=== PATIENT | female | born 1955 | race Caucasian/White ===

== ENCOUNTER 2016-11-26 06:08 | Observation (INO) ==
[2016-11-26] MEDS ORDERED: CeFAZolin Pre 2,000 MG/100 ML 2,000 MG/100 ML BAG IVPB ONE (06:22)
[2016-11-26] MEDS ORDERED: Albuterol 2.5 MG/3 ML NEBULIZER ONE (06:29)
[2016-11-26] MEDS ORDERED: Ringers Solution, Lactated 1,000 ML IVC SCH ×2 (06:30→08:45)
[2016-11-26] MEDS ORDERED: Dexamethasone 4 MG/ML VIAL ONE (06:34)
[2016-11-26] MEDS ORDERED: Ondansetron 4 MG/2 ML VIAL ONE (06:34)
[2016-11-26] MEDS ORDERED: Lidocaine -MPF 2% 2 ML VIAL ONE (06:34)
[2016-11-26] MEDS ORDERED: *HR* Propofol 200 MG/20 ML VIAL IVP ONE (06:34)
[2016-11-26] MEDS ORDERED: *HR* FentaNYL (PF) 100 MCG/2 ML VIAL ONE ×3 (06:34→10:26)
[2016-11-26] MEDS ORDERED: Albuterol 2.5 MG/3 ML NEBULIZER IH ONE (06:34)
--- NOTE | 2016-11-26 06:55 | Anesthesia Evaluation PreOp ---
Date of Encounter: 11/26/16 Time of Encounter: 06:53 - Past History Planned Operation: Right Ankle Fusion Cardiac History: HTN, Other (Murmur - no symptoms) Pulmonary History: Asthma OCCASIONAL BABYSITTER History: Denies Any Significant HX Other Medical History: Diabetes Type II Anesthesia History: No Prior Anesthetic Complications, Past Anesthesia (c/s, GB, , exp. Lap) : No Alcohol Use: none Drug use: none Medications and Allergies Acetaminophen [Tylenol] 500 mg PO Q6HR PRN 11/26/16 [History] Albuterol Sulfate [Proair Hfa] 2 puff IH Q4H PRN 11/26/16 [History] Ibuprofen [Advil] 200 mg PO Q6H PRN 11/26/16 [History] Insulin Glargine,Hum.rec.anlog [Lantus Solostar] 45 unit SQ DAILY 11/26/16 [ History] Insulin LISPRO [Humalog Kwikpen U-100] 15 unit SQ TIDWM 11/26/16 [History] Valsartan/Hydrochlorothiazide [Diovan Hct 160-25 mg Tablet] 1 tab PO DAILY 11/26 [History] Allergies acetaminophen [From Percocet] Allergy (Verified 11/11/16 15:50) Hives Oxycodone [From Percocet] Allergy (Verified 11/11/16 15:50) Hives metformin [From Glucophage] Adverse Reaction (Verified 11/11/16 15:50) Diarrhea - Meds/Allergy Pre-op Review Medications Reviewed: Yes Allergies Reviewed: Yes Beta Blockers on Current Med List: No Anesthesia Results - Labs Laboratory Tests 07/09/16 09/10/16 11/11/16 09:09 09:34 16:17 WBC 9.2 Hgb 11.3 L Hct 38.3 Plt Count 163 Sodium 142 Potassium Chloride 107 Carbon Dioxide 26 BUN 29 H Creatinine 1.15 H 11/15/16 12:34 WBC Hgb Hct Plt Count Sodium Potassium 5.0 H Chloride Carbon Dioxide BUN Creatinine - Imaging EKG: image reviewed (SR. krista [place]) Anesthesia Exam O2 Sat Height 1.73 m Height 1.73 m Weight 95.254 kg Weight 95.254 kg O2 Sat by Pulse Oximetry 100 Vital Signs Temp Pulse Resp BP Pulse Ox 98.3 F 74 18 189/76 100 11/26/16 06:31 11/26/16 06:31 11/26/16 06:31 11/26/16 06:31 11/26/16 06:31 Blood glucose: 121 Height: 5'8'' Weight: 210# NPO (# of Hours): > 8 hrs Pain Scale: 0 Pain Scale Used: Numeric (1 - 10) - HEENT Pupil (Motor): Pupils equal, EOMI Mallampati: II Teeth: Normal Oral Opening: Greater than 3 - OCCASIONAL BABYSITTER LOC: Oriented OCCASIONAL BABYSITTER Motor: Normal RUE, Normal LUE, Normal RLE, Normal LLE, Normal Face OCCASIONAL BABYSITTER Sensory: Normal: RUE, LUE, RLE, LLE, Face - Cardiac Rhythm: Regular Murmur: None JVD: No Carotid Bruit: No - Pulmonary Breath Sounds: bilateral Clear Respiratory Effort: Symmetrical Anesthesia Assess/Plan ASA Score: 2 Modified [place] Scale for Level of Consciousness: Cooperative, oriented, and tranquil Anesthetic Plan: General Autologous Blood: Yes Monitoring Plan: Standard Monitors Recovery Plan: PACU
--- NOTE | 2016-11-26 07:24 | History & Physical Report ---
Date of Encounter: 11/26/16 Time of Encounter: 07:23 24 Hour HP Update - Instructions Instructions: If the History and Physical is less than 30 days old and was completed prior to A.M. admission and or procedure and has NOT been updated on calendar day of procedure please complete this update prior to performing procedure. - Update Patient reports changes in Medical Condition: No Changes in assessment/condition: No Changes in Medication: No Preop tests/diagnostics Reviewed: Yes Surgery Remains Indicated: Yes Consent for Planned Operative Procedure(s) Verified: Yes - Pre-Operative Checklist Preoperative Checklist Indicated: Yes Prophylactic Antibiotic Ordered: Yes Home Medications Include Beta Abilio: No Beta Abilio Taken Today (Day of Surgery): No Beta Abilio Taken Yesterday (Day Prior to Surgery): No Is VTE Prophylaxis Indicated?: Yes
[2016-11-26] MEDS ORDERED: Bupivacaine/Clonidine Syringe 1 EACH SYRINGE ONE ×2 (07:26→07:34)
[2016-11-26] MEDS ORDERED: *HR* Midazolam HCl 2 MG/2 ML VIAL ONE ×2 (07:36→08:51)
[2016-11-26] MEDS ORDERED: EPHEDrine 50 MG/ML VIAL ONE (08:28)
--- NOTE | 2016-11-26 08:30 | Anesthesia Procedures ---
Date of Encounter: 11/26/16 Time of Encounter: 07:35 Procedures: Anesthesia - Nerve Block Procedure Date: 11/26/16 Time: 08:28 Allergies/Adv Reactions: acetaminophen, oxycodone, metformin Pre-op Diagnosis: Right ankle Charcot ankle Surgical Procedure: Right ankle fusion Checklist: Correct Patient Identifier, Correct procedure, History checked Correct side: Right Blood Thinner: No Monitor Applied: EKG, BP, Pulse Oximetry Supplemental Oxygen via Nasal Cannula (L/min): 2 Sedation: Versed (mg): 4 Sedation: Fentanyl (mcg): 200 Indication: Post Op Analgesia Pre-op Neuro Deficits: No Block Type: Popliteal Catheter placed: No Sterile Technique: Yes Ultrasound used: Yes Anatomy identified: Yes Visual spread of Local: Yes Neuro Stimulation: Yes Nerve Stimulator Range: 0.2 - 0.4 mA Blood on Needle Aspiration: No Smooth Injection of Local: Yes Pain with Injection of Local: No Prep: Chlorhexadine Needle: 21 x 100 mm Stimuplex Local: 0.25% Bupivicaine w/Clonidine 20 mcg/cc Volume (cc): 40 Number of Attempts: 1 Complications: None/effective block Vitals: Vital Signs Temperature 98.3 F 11/26/16 06:31 Pulse Rate 74 11/26/16 06:31 Respiratory Rate 18 11/26/16 06:31 Blood Pressure 189/76 11/26/16 06:31 O2 Sat by Pulse Oximetry 100 11/26/16 06:31 Temperature 98.3 F 11/26/16 06:31 Pulse Rate 74 11/26/16 06:31 Respiratory Rate 18 11/26/16 06:31 Blood Pressure 189/76 11/26/16 06:31 O2 Sat by Pulse Oximetry 100 11/26/16 06:31 BP 178/82 P 78 R 18 Spo2 97 Comments: Block ordered per dr sessions for postoperative pain relief. VSS throughout.
[2016-11-26] MEDS ORDERED: *HR* HYDROmorphone (PF) 1 MG/ML SYRINGE IVP PRN (08:33)
[2016-11-26] MEDS ORDERED: *HR* Promethazine 25 MG/ML VIAL IVP PRN (08:33)
[2016-11-26] MEDS ORDERED: INSULIN LISPRO 15 UNIT SQ SCH (13:01)
[2016-11-26] MEDS: Insulin LISPRO 300 UNITS/3 ML VIAL SQ SCH ×2 (14:15→18:06)
[2016-11-26 15:10] LABS: Basophils % 0.1 %; Hematocrit 31.8 % (35.3-44.9); Hemoglobin 10.6 g/dL (11.5-15.4); Immature Granulocytes % 0.5 % (0-4); Immature Platelets 3.9 % (1.1-6.1); Lymphocytes # 0.7 K/mcL (0.6-4.6); Lymphocytes % 5.6 %; Mean Corpuscular HGB Conc 33.3 g/dL (31.6-35.5); Mean Corpuscular Hemoglobin 30.8 pg (28.0-33.3); Mean Corpuscular Volume 92.4 fL (83.0-100.0); Mean Platelet Volume 10.9 fL (9.4-12.4); Monocytes # 0.2 K/mcL (0.0-1.3); Monocytes % 1.2 %; Neutrophils # 12.2 K/mcL (1.6-8.9); Platelet Count 163 K/mcL (140-400); Red Blood Count 3.44 M/mcL (3.82-4.97); Red Cell Distribution Width 12.2 % (11.5-14.5); Segmented Neutrophils % 92.6 %
[2016-11-26 15:40] LABS: BUN/Creatinine Ratio 17 (6-26); Blood Urea Nitrogen 19 mg/dL (7-20); Carbon Dioxide 15 mEq/L (19-29); Chloride 106 mEq/L (98-109); Glucose 315 mg/dL (70-99); Osmolality,Calculated 296 (280-300); Sodium 136 mEq/L (136-145); eGFR For African Americans > 60 (> 60); eGFR For Non-African Americans 50 (> 60)
[2016-11-26 15:55] LABS: Potassium 4.7 mEq/L (3.5-4.5)
[2016-11-26] MEDS ORDERED: Dextrose Gel 15 GM PO PRN ×2 (15:56)
[2016-11-26] MEDS ORDERED: *HR* Dextrose 50 % in Water (Syg) 50 ML SYRINGE IVP PRN (15:56)
[2016-11-26] MEDS ORDERED: D5% in Water 1,000 ML IV PRN (15:56)
[2016-11-26] MEDS ORDERED: Ipratropium/Albuterol Neb 3 ML IH PRN (16:01)
--- NOTE | 2016-11-26 16:04 | Internal Medicine Consult Note ---
Date of Encounter: 11/26/16 Time of Encounter: 16:03 Internal Medicine - CN: HPI - Data of Consult Patient: new to practice Consult date: 11/26/16 Requesting Physician: Ayden Camarillo - Consult Narrative Reason for consult: Medical management of type 2 diabetes and Hypertension History of present illness: Ms. Talamantes is a 61 year old female with history of type 2 diabetes, Hypertension and asthma admitted by Dr. Camarillo for right ankle surgery for charcot ankle this morning. Expected length of stay will be 3 days and plans for discharge include intermediate facility. Our team was consulted to manage her medical comorbidities. On exam, she is alert and oriented, in no acute distress, with right lower leg casted and elevated. She denies any pain. Heart has regular rate and rhythm with murmur asucltated at right sternal border. Lungs are clear bilaterally. Normal capillary refill in bilateral toes. Abdomen is soft with hypoactive bowel sounds. Past Med Surg Social Fam HX - Past Medical History Medical history: asthma, diabetes, hypertension Psychiatric history: no psych history - Past Surgical History Surgical History: , cholecystectomy, orthopedic, other (right ankle) - Social History Smoking Status: Never smoker Smokeless Tobacco Status: No Alcohol use: none Drug use: none - Family History Mother Age at : 42 Cause of : Cancer Hx Family Cardiac Disorders: Yes Hx Family Cancer: Yes Hx Family Endocrine Disorder: Yes Father Living Status: Age at : 86 Cause of : CVA Hx Family Cardiac Disorders: Yes Internal Medicine - CN: Meds Acetaminophen [Tylenol] 500 mg PO Q6HR PRN 11/26/16 [History] Albuterol Sulfate [Proair Hfa] 2 puff IH Q4H PRN 11/26/16 [History] Ibuprofen [Advil] 200 mg PO Q6H PRN 11/26/16 [History] Insulin Glargine,Hum.rec.anlog [Lantus Solostar] 45 unit SQ DAILY 11/26/16 [ History] Insulin LISPRO [Humalog Kwikpen U-100] 15 unit SQ TIDWM 11/26/16 [History] Valsartan/Hydrochlorothiazide [Diovan Hct 160-25 mg Tablet] 1 tab PO DAILY 11/26 [History] Allergies acetaminophen [From Percocet] Allergy (Verified 11/11/16 15:50) Hives Oxycodone [From Percocet] Allergy (Verified 11/11/16 15:50) Hives metformin [From Glucophage] Adverse Reaction (Verified 11/11/16 15:50) Diarrhea Internal Medicine - CN: Exam - Constitutional Vitals: Temp Pulse Resp BP Pulse Ox 97.6 F 87 18 152/72 100 11/26/16 15:20 11/26/16 15:20 11/26/16 15:20 11/26/16 15:20 11/26/16 15:20 General appearance IM: Present: A&O X 3, no acute distress - Head Head exam: Present: atraumatic, normocephalic - Eye Eye exam: Present: EOMI, PERRL, conjuntiva pink, sclera anicteric - ENT ENT exam: Present: mucous membranes moist - Neck Neck exam general surgery: Present: normal inspection, supple, trachea midline - Respiratory Respiratory exam: Present: CTAB. Absent: accessory muscle use, rales, rhonchi, wheezes - Cardiovascular Cardiovascular exam IM: Present: RRR, +S1, +S2, systolic murmur. Absent: gallop , rubs - Expanded Cardiovascular Exam Type of murmur: Present: systolic Location: Present: RUSB Intensity: 2/6 Peripheral pulses: 2+: Radial (L), Radial (R) - GI/Abdominal GI/Abdominal exam IM: Present: hypoactive bowel sounds, soft. Absent: tenderness - Neurological Exam Neurological exam: Present: alert, CN II-XII intact, oriented X3. Absent: facial droop, speech deficit - Skin Skin exam IM: Present: dry, intact, warm Internal Medicine - CN: Reslt - Labs CBC & Chem 7: 11/26/16 14:54 11/26/16 14:54 Labs: Short CBC 11/26/16 Range/Units 14:54 WBC 13.2 H (4.3-11.1) K/mcL Hgb 10.6 L (11.5-15.4) g/dL Hct 31.8 L (35.3-44.9) % Plt Count 163 (140-400) K/mcL Neutrophils # 12.2 H (1.6-8.9) K/mcL BMP 11/26/16 14:54 Sodium 136 Potassium 4.7 H Chloride 106 Carbon Dioxide 15 L BUN 19 Creatinine 1.12 H Glucose 315 H Calcium 9.0 - Impressions Impressions Ankle X-Ray 11/26/16 00:00 IMPRESSION: Intraprocedural fluoroscopic spot images as above. See separate procedure report for more information. D/ / Rene Renee MD / Rene Renee MD Interpreting Provider: Rene Renee MD Fluoroscopy 11/26/16 00:00 IMPRESSION: Intraprocedural fluoroscopic spot images as above. See separate procedure report for more information. 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 Will continue with Valsartan 160mg nightly and HCTZ 25mg nightly. Qualifiers: Hypertension type: essential hypertension Qualified Code(s): I10 - Essential (primary) hypertension (3) Asthma Current Visit: Yes Status: Chronic Assessment and plan: Duoneb treatments Q6 PRN Albuterol inhaler 2 puffs Q4hr PRN Qualifiers: Asthma severity: unspecified severity Asthma complication type: uncomplicated Qualified Code(s): J45.909 - Unspecified asthma, uncomplicated (4) Hyperkalemia Current Visit: Yes Status: Acute Assessment and plan: Patient's potassium 4.7. Kayexalate ordered. Recheck BMP in the morning. (5) DVT prophylaxis Current Visit: Yes Status: Acute Assessment and plan: Activity per direction of surgical team Calf compressor on non-operative leg 5,000u heparin SQ BID Consult Discharge Plan - Plan Referrals: Moy Eid DO [Primary Care Provider] -
[2016-11-26] MEDS: *HR* HYDROcodone/Acet 10/325 mg TABLET PO PRN (16:10)
[2016-11-26] MEDS: ceFAZolin 2,000 MG in D5% in Water 100 ML IVPB SCH (16:25)
[2016-11-26] MEDS ORDERED: Insulin LISPRO 300 UNITS/3 ML VIAL SQ SCH (17:00)
[2016-11-26] MEDS: *HR* Heparin 5,000 UNIT/ML VIAL SQ SCH (18:04)
[2016-11-26] MEDS: hydroCHLOROthiazide 25 MG TABLET PO SCH (18:05)
[2016-11-26] MEDS: Valsartan 160 MG TABLET PO SCH (18:05)
[2016-11-26] MEDS: Famotidine 20 MG TABLET PO SCH (20:08)
[2016-11-26] MEDS: Insulin DETEMIR 100 UNIT/ML X5UNITS SQ SCH (20:09)
[2016-11-26] MEDS ORDERED: Acetaminophen IV 1,000 MG/100 ML INFUS..BTL IVPB ONE (20:21)
[2016-11-27] MEDS: ceFAZolin 2,000 MG in D5% in Water 100 ML IVPB SCH (02:13)
[2016-11-27] MEDS: *HR* Heparin 5,000 UNIT/ML VIAL SQ SCH ×2 (06:48→17:13)
[2016-11-27] MEDS: *HR* HYDROcodone/Acet 10/325 mg TABLET PO PRN ×3 (06:50→19:42)
[2016-11-27] MEDS: Insulin LISPRO 300 UNITS/3 ML VIAL SQ SCH ×3 (08:14→17:12)
[2016-11-27] MEDS: Valsartan 160 MG TABLET PO SCH (08:14)
[2016-11-27] MEDS: hydroCHLOROthiazide 25 MG TABLET PO SCH (08:14)
[2016-11-27] MEDS: Famotidine 20 MG TABLET PO SCH ×2 (08:15→19:33)
--- NOTE | 2016-11-27 08:35 | Podiatry History & Physical ---
History of Present Illness Chief complaint: Post-operative charcot ankle HPI: Ms. Talamantes is a 61 year old female who has diabetes and a charcot ankle. Patient was admitted for pain control and medical management postoperatively. Patient is in need of admittance to a nursing facility. All Systems Reviewed: A 10-system review of systems was performed and is negative for pertinent findings except as documented above in the HPI. Past Med Surg Social Fam HX - Past Medical History Medical history: asthma, diabetes, hypertension Psychiatric history: no psych history - Past Surgical History Surgical History: , cholecystectomy, orthopedic, other (right ankle) - Social History Smoking Status: Never smoker Smokeless Tobacco Status: No Alcohol use: none Drug use: none - Family History Mother Age at : 42 Cause of : Cancer Hx Family Cardiac Disorders: Yes Hx Family Cancer: Yes Hx Family Endocrine Disorder: Yes Father Living Status: Age at : 86 Cause of : CVA Hx Family Cardiac Disorders: Yes Medications and Allergies Acetaminophen [Tylenol] 500 mg PO Q6HR PRN 11/26/16 [History] Albuterol Sulfate [Proair Hfa] 2 puff IH Q4H PRN 11/26/16 [History] Ibuprofen [Advil] 200 mg PO Q6H PRN 11/26/16 [History] Insulin Glargine,Hum.rec.anlog [Lantus Solostar] 45 unit SQ DAILY 11/26/16 [ History] Insulin LISPRO [Humalog Kwikpen U-100] 15 unit SQ TIDWM 11/26/16 [History] Valsartan/Hydrochlorothiazide [Diovan Hct 160-25 mg Tablet] 1 tab PO DAILY 11/26 [History] Allergies acetaminophen [From Percocet] Allergy (Verified 11/11/16 15:50) Hives Oxycodone [From Percocet] Allergy (Verified 11/11/16 15:50) Hives metformin [From Glucophage] Adverse Reaction (Verified 11/11/16 15:50) Diarrhea Physical Exam - Constitutional Vitals: Temp Pulse Resp BP Pulse Ox 97.8 F 83 16 137/68 99 11/27/16 06:22 11/27/16 06:22 11/27/16 06:22 11/27/16 06:22 11/27/16 06:22 Exam: Dressings intact, pedal pulses palpable. Capillary fill time intact to digits. No open lesions, abrasions, or ulcerations the site surgical sites. Decreased sensation noted to bilateral lower extremities consistent with peripheral neuropathy. Swelling consistent with the postoperative procedure. Results - Labs Result Diagrams: 11/26/16 14:54 11/26/16 14:54 Labs: Abnormal lab results WBC 13.2 K/mcL (4.3-11.1) H 11/26/16 14:54 RBC 3.44 M/mcL (3.82-4.97) L 11/26/16 14:54 Hgb 10.6 g/dL (11.5-15.4) L 11/26/16 14:54 Hct 31.8 % (35.3-44.9) L 11/26/16 14:54 Neutrophils # 12.2 K/mcL (1.6-8.9) H 11/26/16 14:54 Potassium 4.7 mEq/L (3.5-4.5) H 11/26/16 14:54 Carbon Dioxide 15 mEq/L (19-29) L 11/26/16 14:54 Creatinine 1.12 mg/dL (0.57-1.11) H 11/26/16 14:54 Est GFR (Non-Af Amer) 50 (> 60) L 11/26/16 14:54 Glucose 315 mg/dL (70-99) H 11/26/16 14:54 POC Glucose 247 (58-89) H 11/26/16 20:26 H & H 11/26/16 Range/Units 14:54 Hgb 10.6 L (11.5-15.4) g/dL Hct 31.8 L (35.3-44.9) % All other labs normal. Assessment and Plan (1) Charcot ankle Current visit: Yes Status: Acute Patient will remain nonweightbearing. drive worker will work with patient to determine placement. Patient will keep the dressings intact. The TLS drain will be changed if it reaches more than half-full or every 6 hours. Hospitalist will be consulted for medical management. Patient will follow up with me in one week. Qualifiers: Laterality: right Qualified Code(s): M14.671 - Charcot's joint, right ankle and foot - VTE Documentation of Mechanical Device: Graduated compression elastic hosiery
[2016-11-27] MEDS ORDERED: Valsartan 160 MG TABLET PO SCH (09:00)
[2016-11-27] MEDS ORDERED: hydroCHLOROthiazide 25 MG TABLET PO SCH (09:00)
[2016-11-27 10:30] LABS: BUN/Creatinine Ratio 19 (6-26); Blood Urea Nitrogen 21 mg/dL (7-20); Carbon Dioxide 21 mEq/L (19-29); Chloride 104 mEq/L (98-109); Glucose 141 mg/dL (70-99); Osmolality,Calculated 295 (280-300); Potassium 4.2 mEq/L (3.5-4.5); Sodium 140 mEq/L (136-145); eGFR For African Americans > 60 (> 60); eGFR For Non-African Americans 51 (> 60)
[2016-11-27] MEDS: Ondansetron 4 MG/2 ML VIAL IVP PRN (12:37)
--- NOTE | 2016-11-27 16:49 | Internal Med Progress Note ---
Date of Encounter: 11/27/16 Time of Encounter: 09:00 - Assessment and plan (1) Charcot ankle Current Visit: Yes Status: Acute Assessment and plan: S/P surgery, physical therapy, plan for discharge to rehabilitation center. Management per podiatry Qualifiers: Laterality: right Qualified Code(s): M14.671 - Charcot's joint, right ankle and foot (2) Hyperkalemia Current Visit: Yes Status: Acute Assessment and plan: Resolved after Kayexalate (3) Asthma Current Visit: Yes Status: Chronic Assessment and plan: Stable. Nebulizer when necessary. Qualifiers: Asthma severity: unspecified severity Asthma complication type: uncomplicated Qualified Code(s): J45.909 - Unspecified asthma, uncomplicated (4) Hypertension Current Visit: Yes Status: Chronic Assessment and plan: Blood pressure is well controlled. Continue home medication Qualifiers: Hypertension type: essential hypertension Qualified Code(s): I10 - Essential (primary) hypertension (5) Type 2 diabetes mellitus Current Visit: Yes Status: Chronic Assessment and plan: Patient is on basal and sliding scale insulin. Adjust the dosage to get ideal blood sugar control. Qualifiers: Diabetes mellitus complication status: without complication Diabetes mellitus snf insulin use: with snf use Qualified Code(s): E11.9 - Type 2 diabetes mellitus without complications; Z79.4 - FDC (current) use of insulin (6) DVT prophylaxis Current Visit: Yes Status: Acute Assessment and plan: heparin subcutaneously - Time Spent With Patient 25 - 35 minutes - Subjective Interval history: Patient is a 61-year-old female admitted to podiatry service for postoperative charcot ankle. Medical consult for comorbidities. Her past medical history is significant for asthma, diabetes, hypertension. Patient was seen and examined. She is awake, alert, oriented 3, no fever, vital signs stable. Her blood sugar is high, we will adjust insulin regimen to get better control. Her blood pressure is stable. Continue current management. - Constitutional Vitals: Temp Pulse Resp BP Pulse Ox 97.9 F 81 16 114/73 98 11/27/16 14:38 11/27/16 14:38 11/27/16 14:38 11/27/16 14:38 11/27/16 14:38 General appearance: Present: A&O X 3, no acute distress - Head Head exam: Present: atraumatic, normocephalic - Eye Eye exam: Present: PERRL, conjuntiva pink, sclera anicteric Pupils: Present: PERRL - Neck Neck exam general surgery: Present: supple, trachea midline. Absent: lymphadenopathy - Respiratory Respiratory exam: Present: CTAB. Absent: accessory muscle use, rales, rhonchi, wheezes - Cardiovascular Cardiovascular exam: Present: RRR, +S1, +S2. Absent: diastolic murmur, gallop, rubs, systolic murmur - GI/Abdominal GI/Abdominal exam: Present: normal bowel sounds, soft, no peritoneal signs. Absent: distended, tenderness - Extremities Exam Extremities exam: Present: warm, radial pulses palpable and symetrical. Absent : calf tenderness, cyanotic, pedal edema - Neurological Exam Neurological exam: Present: CN II-XII intact, oriented X3, no focal deficits. Absent: pronater drift, facial droop, speech deficit - Skin Skin exam: Present: dry, intact Internal Medicine: Result - Labs CBC & Chem 7: 11/26/16 14:54 11/27/16 09:42 Labs: BMP 11/27/16 09:42 Sodium 140 Potassium 4.2 Chloride 104 Carbon Dioxide 21 BUN 21 H Creatinine 1.09 Glucose 141 H Calcium 9.0 - VTE Documentation of Mechanical Device: Graduated compression elastic hosiery Consult Discharge Plan - Plan Referrals: Moy Eid DO [Primary Care Provider] -
[2016-11-27] MEDS: Insulin DETEMIR 100 UNIT/ML X5UNITS SQ SCH (19:33)
--- NOTE | 2016-11-27 23:06 | Podiatry Progress Note ---
Date of Encounter: 11/27/16 Time of Encounter: 13:02 - Assessment and Plan (1) Charcot ankle Current Visit: Yes Status: Acute Patient will remain nonweightbearing. automotive tire worker will work with patient to determine placement. Patient will keep the dressings intact. The TLS drain will be changed if it reaches more than half-full or every 6 hours. Hospitalist will be consulted for medical management. Patient will follow up with me in one week. Qualifiers: Laterality: right Qualified Code(s): M14.671 - Charcot's joint, right ankle and foot Subjective Principal diagnosis: Charcot ankle Interval history: Patient relates that she is feeling pain. Patient relates that she has been feeling better today though. Patient denies any nausea, vomiting, chills, shortness of breath. Patient relates that the pain is a throbbing pain. Objective - Vital Signs Vital Signs: Vital Signs Temp Pulse Resp BP Pulse Ox 11/27/16 20:27 98.3 F 80 15 99/64 100 11/27/16 14:38 97.9 F 81 16 114/73 98 11/27/16 12:17 78 16 111/70 97 11/27/16 10:39 97.7 F 78 16 111/70 97 11/27/16 08:26 99 11/27/16 06:22 97.8 F 83 16 137/68 99 11/27/16 04:18 97.9 F 80 16 134/62 99 11/27/16 00:07 97.7 F 76 14 119/65 100 Intake and Output 11/27/16 11/27/16 11/27/16 07:59 15:59 23:59 Intake Total 300 / 300 1140 / 1140 Output Total 300 / 300 450 / 450 Balance 0 / 0 690 / 690 Intake: IV Fluids 100 / 100 Ancef 2,000 MG In 100 / 100 Dextrose 5% 100 ML @ 200 mls/hr IVPB Q8HR [facility] Rx#: [id number] Oral 200 / 200 1140 / 1140 Output: Urine 300 / 300 450 / 450 Other: Meal Breakfast Percent of Meal Consumed 100% Blood Glucose* 150 102 98 - Exam Exam: Dressing intact, patient is able to plantarflex and dorsiflex digits. CFT intact to the digits. - Lab Result Diagrams: 11/26/16 14:54 11/27/16 09:42 Labs: Abnormal lab results WBC 13.2 K/mcL (4.3-11.1) H 11/26/16 14:54 RBC 3.44 M/mcL (3.82-4.97) L 11/26/16 14:54 Hgb 10.6 g/dL (11.5-15.4) L 11/26/16 14:54 Hct 31.8 % (35.3-44.9) L 11/26/16 14:54 Neutrophils # 12.2 K/mcL (1.6-8.9) H 11/26/16 14:54 BUN 21 mg/dL (7-20) H 11/27/16 09:42 Est GFR (Non-Af Amer) 51 (> 60) L 11/27/16 09:42 Glucose 141 mg/dL (70-99) H 11/27/16 09:42 POC Glucose 98 (58-89) H 11/27/16 20:18 - VTE Documentation of Mechanical Device: Graduated compression elastic hosiery Consult Discharge Plan - Plan Referrals: Moy Eid DO [Primary Care Provider] -
[2016-11-28] MEDS: *HR* Heparin 5,000 UNIT/ML VIAL SQ SCH ×2 (05:38→18:00)
[2016-11-28] MEDS: *HR* HYDROcodone/Acet 10/325 mg TABLET PO PRN ×3 (06:55→18:34)
[2016-11-28 07:15] LABS: Calcium 8.6 mg/dL (8.6-10.8); Potassium 4.3 mEq/L (3.5-4.5)
[2016-11-28] MEDS: hydroCHLOROthiazide 25 MG TABLET PO SCH (07:57)
[2016-11-28] MEDS: Famotidine 20 MG TABLET PO SCH ×2 (07:58→20:28)
[2016-11-28] MEDS: Insulin LISPRO 300 UNITS/3 ML VIAL SQ SCH ×3 (07:58→18:01)
[2016-11-28] MEDS: Valsartan 160 MG TABLET PO SCH (07:59)
[2016-11-28] MEDS: Ondansetron 4 MG/2 ML VIAL IVP PRN (12:39)
--- NOTE | 2016-11-28 16:22 | Internal Med Progress Note ---
Date of Encounter: 11/28/16 Time of Encounter: 09:00 - Assessment and plan (1) Charcot ankle Current Visit: Yes Status: Acute Assessment and plan: S/P surgery, physical therapy, plan for discharge to rehabilitation center. Management per podiatry Qualifiers: Laterality: right Qualified Code(s): M14.671 - Charcot's joint, right ankle and foot (2) Hyperkalemia Current Visit: Yes Status: Acute Assessment and plan: Resolved after Kayexalate (3) Asthma Current Visit: Yes Status: Chronic Assessment and plan: Stable. Nebulizer when necessary. Qualifiers: Asthma severity: unspecified severity Asthma complication type: uncomplicated Qualified Code(s): J45.909 - Unspecified asthma, uncomplicated (4) Hypertension Current Visit: Yes Status: Chronic Assessment and plan: Blood pressure is well controlled. Continue home medication Qualifiers: Hypertension type: essential hypertension Qualified Code(s): I10 - Essential (primary) hypertension (5) Type 2 diabetes mellitus Current Visit: Yes Status: Chronic Assessment and plan: Patient is on basal and sliding scale insulin. Adjust the dosage to get ideal blood sugar control. Now Glu level is stable. Qualifiers: Diabetes mellitus complication status: without complication Diabetes mellitus vermin exterminator insulin use: with vermin exterminator use Qualified Code(s): E11.9 - Type 2 diabetes mellitus without complications; Z79.4 - watermelon inspector (current) use of insulin (6) DVT prophylaxis Current Visit: Yes Status: Acute Assessment and plan: heparin subcutaneously (7) Nausea Current Visit: Yes Status: Acute Assessment and plan: Etiology is undetermined. Patient passing gas and abdominal examination shows soft and nontender. Consider side effect of medications or postoperative nausea. Give symptomatic treatment. - Time Spent With Patient 25 - 35 minutes - Subjective Interval history: Patient is a 61-year-old female admitted to podiatry service for postoperative charcot ankle. Medical consult for comorbidities. Her past medical history is significant for asthma, diabetes, hypertension. Patient was seen and examined. She c/o nausea, no vomiting. She has no fever, vital signs stable. Her blood sugar is getting better control. Her blood pressure is stable. Pt has passed gas, abd is soft and nontender. Consider nausea is due to side effects of medication or PONV. Will add IVF to prevent dehydration. Symptomatic control. Continue close monitoring. - Constitutional Vitals: Temp Pulse Resp BP Pulse Ox 97.9 F 71 16 123/70 100 11/28/16 15:07 11/28/16 15:07 11/28/16 15:07 11/28/16 15:07 11/28/16 15:07 General appearance: Present: A&O X 3, no acute distress - Head Head exam: Present: atraumatic, normocephalic - Eye Eye exam: Present: PERRL, conjuntiva pink, sclera anicteric Pupils: Present: PERRL - Neck Neck exam general surgery: Present: supple, trachea midline. Absent: lymphadenopathy - Respiratory Respiratory exam: Present: CTAB. Absent: accessory muscle use, rales, rhonchi, wheezes - Cardiovascular Cardiovascular exam: Present: RRR, +S1, +S2. Absent: diastolic murmur, gallop, rubs, systolic murmur - GI/Abdominal GI/Abdominal exam: Present: normal bowel sounds, soft, no peritoneal signs. Absent: distended, tenderness - Extremities Exam Extremities exam: Present: warm, radial pulses palpable and symetrical. Absent : calf tenderness, cyanotic, pedal edema - Neurological Exam Neurological exam: Present: CN II-XII intact, oriented X3, no focal deficits. Absent: pronater drift, facial droop, speech deficit - Skin Skin exam: Present: dry, intact Internal Medicine: Result - Labs CBC & Chem 7: 11/26/16 14:54 11/28/16 05:53 Labs: BMP 11/28/16 05:53 Sodium 140 Potassium 4.3 Chloride 108 Carbon Dioxide 21 BUN 35 H D Creatinine 1.57 H Glucose 124 H Calcium 8.6 - VTE Documentation of Mechanical Device: Graduated compression elastic hosiery Consult Discharge Plan - Plan Referrals: Moy Eid DO [Primary Care Provider] -
[2016-11-28] MEDS: *HR* Promethazine 25 MG/ML VIAL IVP PRN (18:00)
[2016-11-28] MEDS: 0.9 % Sodium Chloride 1,000 ML IVC SCH (18:34)
[2016-11-28] MEDS: Insulin DETEMIR 100 UNIT/ML X5UNITS SQ SCH (20:28)
[2016-11-29] MEDS: 0.9 % Sodium Chloride 1,000 ML IVC SCH (05:13)
[2016-11-29] MEDS: *HR* HYDROcodone/Acet 10/325 mg TABLET PO PRN ×3 (05:40→18:07)
[2016-11-29] MEDS: *HR* Heparin 5,000 UNIT/ML VIAL SQ SCH ×2 (05:40→18:04)
[2016-11-29 06:26] LABS: Basophils % 0.2 %; Eosinophils # 0.1 K/mcL (0.0-0.6); Hematocrit 26.6 % (35.3-44.9); Immature Granulocytes % 0.4 % (0-4); Lymphocytes # 2.9 K/mcL (0.6-4.6); Lymphocytes % 27.5 %; Mean Corpuscular HGB Conc 33.8 g/dL (31.6-35.5); Mean Corpuscular Hemoglobin 30.9 pg (28.0-33.3); Mean Corpuscular Volume 91.4 fL (83.0-100.0); Mean Platelet Volume 12.1 fL (9.4-12.4); Monocytes # 1.1 K/mcL (0.0-1.3); Monocytes % 10.8 %; Neutrophils # 6.3 K/mcL (1.6-8.9); Platelet Count 126 K/mcL (140-400); Red Blood Count 2.91 M/mcL (3.82-4.97); Red Cell Distribution Width 12.5 % (11.5-14.5); Segmented Neutrophils % 60.1 %
[2016-11-29 06:41] LABS: Albumin 2.9 g/dL (3.5-5.0); Albumin/Globulin Ratio 0.8 (1.1-2.2); Bilirubin,Total 1.1 mg/dL (0.2-1.2); Calcium 8.9 mg/dL (8.6-10.8); Globulin 3.6 g/dL (2.4-3.5); Potassium 4.6 mEq/L (3.5-4.5); Total Protein 6.5 g/dL (6.0-8.3)
[2016-11-29 06:46] LABS: Platelet Estimate Slight Decrease (Normal)
[2016-11-29] MEDS: Insulin LISPRO 300 UNITS/3 ML VIAL SQ SCH ×3 (08:20→18:04)
[2016-11-29] MEDS: Famotidine 20 MG TABLET PO SCH ×2 (08:22→20:47)
[2016-11-29] MEDS: hydroCHLOROthiazide 25 MG TABLET PO SCH (08:22)
[2016-11-29] MEDS: Valsartan 160 MG TABLET PO SCH (08:22)
--- NOTE | 2016-11-29 13:26 | Operative Note ---
Date of procedure: 11/26/16 Pre-op diagnosis: Charcot arthropathy rear foot with deformity, right Post-op diagnosis: same Procedure: Arthrodesis of ankle joint. Arthrodesis of subtalar joint. Capsulotomy of the midfoot, extensive talotibial capsulotomy with ligamentous/ tendon release. Resection of prominent bone of the midfoot. Procurement of bone graft and placement of bone graft in the subtalar and ankle joint Implants: [employer] valor nail Complications: None Anesthesia: GETA Surgeon: Ayden Camarillo Estimated blood loss (cc): 50 Tourniquet Time (Minutes): 120 Specimen: None Condition: stable Disposition: floor Procedure in Detail: The patient was administered IV antibiotics. The patient was transported to the operative room and placed on operating table in the position. Following anesthesia the foot was scrubbed prepped and draped in the usual aseptic fashion. A timeout was performed. The lower extremity was raised to 60 degrees for hemostasis and exsanguinated utilizing an Esmarch bandage. The pneumatic tourniquet was inflated. The leg was lowered to the table. An incision was made and deepened through subcutaneous tissue with care taken to identify and retract all vital neurovascular structures. Incision was made over the fibula extending down to the subtalar joint. The fibula was identified and a fibular osteotomy was performed at the distal aspect of the fibula to gain access to the ankle joint. Collateral ligaments were released as well as the syndesmotic ligament to remove the distal aspect of the fibula and gain access to the ankle joint. After the ankle joint was partially visible it was noted that there was significant amounts of hypertrophic bone formation consistent with Charcot arthropathy. The joint was noted to be in terrible condition due to Charcot arthropathy. The subtalar joint was identified and noted to be significant irregular due to the Charcot arthropathy. Due to the significant deformity and difficulty reducing the deformity extensive capsulotomies were performed at the subtalar joint, posterior talotibial joint and the peroneal tendons were released from their sheath and mobilized. After adequate capsulotomy and release of ligaments the access to the joints improved and the deformity was more easily corrected. The joints were prepped by removing any remaining cartilage and by doing subchondral drilling to obtain healthy bleeding bone on both sides of the arthrodesis site. A portion of fibular bone graft was milled and saved to be placed in the ankle joint and subtalar joint. After the subtalar joint and ankle joint were prepped there was noted to be additional deformity near the midfoot. An incision was made on the medial aspect of the midfoot and a capsulotomy was performed followed by resection of hypertrophic bone along the dorsal aspect of the midfoot. After adequate capsulotomy and midfoot resection of bone were complete attempted reduction of the deformity was performed and the ankle and foot were able to be in a more rectus position. The bone graft was placed in the subtalar joint and ankle joint. The position was stabilized with a Steinmann pin and a small incision was made on the plantar aspect of the calcaneus. A pin was placed up the calcaneus through the talus and into the intramedullary space of the tibia. The tibia was then reamed and prepared for the intramedullary nail. The nail was then inserted stabilizing the rear foot and aligning the rear foot in a rectus position . The ankle joint was noted to be at 90 degrees and the screws were inserted into the nail to stabilize the ankle and nail. After confirmation of adequate placement was confirmed with fluoroscopy, the incision sites were irrigated with copious amounts of normal saline and closed in a layered fashion. A TLS drain was placed. A dry sterile dressing was applied. The pneumatic tourniquet was deflated and a hyperemic response was noted to all digits. The patient was placed in a posterior splint. The patient tolerated the procedure and anesthesia well and was transported to the recovery room with vital signs stable and vascular status intact to both feet. The patient will be admitted to the floor per anesthesia. The patient will keep the dressings clean, dry, intact until the follow-up appointment in 1-2 weeks. The patient's weightbearing status will be strict nonweightbearing. The patient will also begin using a bone stimulator.
--- NOTE | 2016-11-29 15:37 | Internal Med Progress Note ---
Date of Encounter: 11/29/16 Time of Encounter: 10:00 - Assessment and plan (1) Charcot ankle Current Visit: Yes Status: Acute Assessment and plan: S/P surgery, physical therapy, plan for discharge to rehabilitation center. Management per podiatry Qualifiers: Laterality: right Qualified Code(s): M14.671 - Charcot's joint, right ankle and foot (2) Hyperkalemia Current Visit: Yes Status: Acute Assessment and plan: Resolved after Kayexalate (3) Asthma Current Visit: Yes Status: Chronic Assessment and plan: Stable. Nebulizer when necessary. Qualifiers: Asthma severity: unspecified severity Asthma complication type: uncomplicated Qualified Code(s): J45.909 - Unspecified asthma, uncomplicated (4) Hypertension Current Visit: Yes Status: Chronic Assessment and plan: Blood pressure is well controlled. Continue home medication Qualifiers: Hypertension type: essential hypertension Qualified Code(s): I10 - Essential (primary) hypertension (5) Type 2 diabetes mellitus Current Visit: Yes Status: Chronic Assessment and plan: Patient is on basal and sliding scale insulin. Adjust the dosage to get ideal blood sugar control. Now Glu level is stable. Qualifiers: Diabetes mellitus complication status: without complication Diabetes mellitus intermodal owner operator truck driver insulin use: with intermodal owner operator truck driver use Qualified Code(s): E11.9 - Type 2 diabetes mellitus without complications; Z79.4 - terminal operations supervisor (current) use of insulin (6) DVT prophylaxis Current Visit: Yes Status: Acute Assessment and plan: heparin subcutaneously (7) Nausea Current Visit: Yes Status: Acute Assessment and plan: Improving. - Time Spent With Patient 25 - 35 minutes - Subjective Interval history: Patient is a 61-year-old female admitted to podiatry service for postoperative charcot ankle. Medical consult for comorbidities. Her past medical history is significant for asthma, diabetes, hypertension. Patient was seen and examined. She c/o mild nausea, improved vs yesterday, no vomiting. She has no fever, vital signs stable. Her blood sugar and blood pressure are stable. Pt has passed gas, abd is soft and nontender. Patient today eat well, will d/c IVF. Symptomatic control. Continue physical therapy and plan for rehabilitation discharge. - Constitutional Vitals: Temp Pulse Resp BP Pulse Ox 98.2 F 82 16 121/57 96 11/29/16 14:51 11/29/16 14:51 11/29/16 14:51 11/29/16 14:51 11/29/16 14:51 General appearance: Present: A&O X 3, no acute distress - Head Head exam: Present: atraumatic, normocephalic - Eye Eye exam: Present: PERRL, conjuntiva pink, sclera anicteric Pupils: Present: PERRL - Neck Neck exam general surgery: Present: supple, trachea midline. Absent: lymphadenopathy - Respiratory Respiratory exam: Present: CTAB. Absent: accessory muscle use, rales, rhonchi, wheezes - Cardiovascular Cardiovascular exam: Present: RRR, +S1, +S2. Absent: diastolic murmur, gallop, rubs, systolic murmur - GI/Abdominal GI/Abdominal exam: Present: normal bowel sounds, soft, no peritoneal signs. Absent: distended, tenderness - Extremities Exam Extremities exam: Present: warm, radial pulses palpable and symetrical. Absent : calf tenderness, cyanotic, pedal edema - Neurological Exam Neurological exam: Present: CN II-XII intact, oriented X3, no focal deficits. Absent: pronater drift, facial droop, speech deficit - Skin Skin exam: Present: dry, intact Internal Medicine: Result - Labs CBC & Chem 7: 11/29/16 05:19 11/29/16 05:19 Labs: Short CBC 11/29/16 Range/Units 05:19 WBC 10.5 (4.3-11.1) K/mcL Hgb 9.0 L D (11.5-15.4) g/dL Hct 26.6 L (35.3-44.9) % Plt Count 126 L (140-400) K/mcL Neutrophils # 6.3 (1.6-8.9) K/mcL BMP 11/29/16 05:19 Sodium 141 Potassium 4.6 H Chloride 108 Carbon Dioxide 22 BUN 33 H Creatinine 1.32 H Glucose 93 Calcium 8.9 Liver Function 11/29/16 Range/Units 05:19 Total Bilirubin 1.1 (0.2-1.2) mg/dL AST 23 (5-34) Units/L ALT 15 (0-55) Units/L Alkaline Phosphatase 75 (38-126) Units/L Albumin 2.9 L (3.5-5.0) g/dL - VTE Documentation of Mechanical Device: Graduated compression elastic hosiery Consult Discharge Plan - Plan Additional Instructions: NO WEIGHT BEARING TO RIGHT LEG KEEP DRESSING C/D/I FOLLOW UP WITH PRIMARY DOC IN 7-10 DAYS KEEP ALL APPOINTMENTS TAKE ALL MEDS PRESCRIBED Referrals: Ayden Camarillo DPM [Partnered Physician] - 12/08/16 8:30 am Moy Eid DO [Primary Care Provider] -
[2016-11-29] MEDS: Insulin DETEMIR 100 UNIT/ML X5UNITS SQ SCH (21:07)
[2016-11-30] MEDS: *HR* HYDROcodone/Acet 10/325 mg TABLET PO PRN ×4 (00:09→21:33)
[2016-11-30 05:08] LABS: Basophils % 0.3 %; Eosinophils # 0.1 K/mcL (0.0-0.6); Hematocrit 23.5 % (35.3-44.9); Hemoglobin 7.6 g/dL (11.5-15.4); Immature Granulocytes % 0.4 % (0-4); Lymphocytes # 2.1 K/mcL (0.6-4.6); Lymphocytes % 26.6 %; Mean Corpuscular HGB Conc 32.3 g/dL (31.6-35.5); Mean Corpuscular Hemoglobin 30.5 pg (28.0-33.3); Mean Corpuscular Volume 94.4 fL (83.0-100.0); Mean Platelet Volume 10.2 fL (9.4-12.4); Monocytes # 0.7 K/mcL (0.0-1.3); Monocytes % 9.3 %; Neutrophils # 4.8 K/mcL (1.6-8.9); Platelet Count 158 K/mcL (140-400); Red Blood Count 2.49 M/mcL (3.82-4.97); Red Cell Distribution Width 12.3 % (11.5-14.5); Segmented Neutrophils % 62.4 %
[2016-11-30 05:22] LABS: BUN/Creatinine Ratio 26 (6-26); Blood Urea Nitrogen 28 mg/dL (7-20); Carbon Dioxide 25 mEq/L (19-29); Chloride 109 mEq/L (98-109); Glucose 153 mg/dL (70-99); Osmolality,Calculated 301 (280-300); Potassium 3.9 mEq/L (3.5-4.5); Sodium 141 mEq/L (136-145); eGFR For African Americans > 60 (> 60); eGFR For Non-African Americans 51 (> 60)
[2016-11-30] MEDS: *HR* Heparin 5,000 UNIT/ML VIAL SQ SCH ×2 (05:34→17:27)
--- NOTE | 2016-11-30 05:39 | Podiatry Progress Note ---
Date of Encounter: 11/28/16 Time of Encounter: 13:37 - Assessment and Plan (1) Charcot ankle Current Visit: Yes Status: Acute Patient will remain nonweightbearing. loft worker pile driving will work with patient to determine placement. Patient will keep the dressings intact. The TLS drain will be changed if it reaches more than half-full or every 6 hours. Patient will follow up with me one week after discharge. We will change dressing prior to the patient's discharge. Qualifiers: Laterality: right Qualified Code(s): M14.671 - Charcot's joint, right ankle and foot Subjective Principal diagnosis: Charcot ankle Interval history: Patient relates that she is feeling pain. Patient relates that she has been feeling better today though. Patient denies any nausea, vomiting, chills, shortness of breath. Patient relates that the pain is a throbbing pain. Patient states that she is having a difficult time working with physical therapy and remaining nonweightbearing. Objective - Vital Signs Vital Signs: Vital Signs Temp Pulse Resp BP Pulse Ox 11/30/16 03:41 99.3 F 76 15 123/76 96 11/29/16 23:55 98.8 F 77 16 146/76 94 L 11/29/16 19:53 99.5 F 80 16 105/65 95 11/29/16 14:51 98.2 F 82 16 121/57 96 11/29/16 12:49 97.9 F 78 16 114/62 97 11/29/16 11:00 97.9 F 70 18 159/67 99 11/29/16 06:19 98.4 F 87 18 106/67 100 Intake and Output 11/29/16 11/29/16 11/30/16 15:59 23:59 07:59 Intake Total 240 / 240 620 / 620 0 / 0 Output Total 200 / 200 0 / 0 0 / 0 Balance 40 / 40 620 / 620 0 / 0 Intake: IV Fluids 300 / 300 0.9 % Sodium Chloride 1, 300 / 300 000 ML @ 100 mls/hr IVC . Q[facility]H [facility] Rx#:[id number] Oral 240 / 240 320 / 320 0 / 0 Output: Urine 200 / 200 0 / 0 0 / 0 Wound Drainage 0 / 0 0 / 0 0 / 0 RIght Ankle 0 / 0 0 / 0 0 / 0 Other: Meal Lunch Dinner Percent of Meal Consumed 100% 100% Weight 95.2 kg Blood Glucose* 147 119 Patient Weight 11/30/16 23:59 Weight 95.2 kg - Exam Exam: Capillary fill time intact to digits 1 through 5 bilaterally. Patient is able to dorsiflex and plantarflex digits. No pain with manual calf compression. No no open lesions, abrasions, or ulcerations. The TLS drain continues to drain bloody drainage. - Lab Result Diagrams: 11/30/16 04:47 11/30/16 04:47 Labs: Abnormal lab results RBC 2.49 M/mcL (3.82-4.97) L 11/30/16 04:47 Hgb 7.6 g/dL (11.5-15.4) L 11/30/16 04:47 Hct 23.5 % (35.3-44.9) L 11/30/16 04:47 Platelet Estimate Slight Decrease (Normal) L 11/29/16 05:19 BUN 28 mg/dL (7-20) H 11/30/16 04:47 Est GFR (Non-Af Amer) 51 (> 60) L 11/30/16 04:47 Glucose 153 mg/dL (70-99) H 11/30/16 04:47 POC Glucose 119 (58-89) H 11/29/16 21:03 Calculated Osmolality 301 (280-300) H 11/30/16 04:47 Albumin 2.9 g/dL (3.5-5.0) L 11/29/16 05:19 Globulin 3.6 g/dL (2.4-3.5) H 11/29/16 05:19 Albumin/Globulin Ratio 0.8 (1.1-2.2) L 11/29/16 05:19 - VTE Documentation of Mechanical Device: Graduated compression elastic hosiery Consult Discharge Plan - Plan Additional Instructions: NO WEIGHT BEARING TO RIGHT LEG KEEP DRESSING C/D/I FOLLOW UP WITH PRIMARY DOC IN 7-10 DAYS KEEP ALL APPOINTMENTS TAKE ALL MEDS PRESCRIBED Referrals: Ayden Camarillo DPM [Partnered Physician] - 12/08/16 8:30 am Moy Eid DO [Primary Care Provider] -
--- NOTE | 2016-11-30 05:45 | Podiatry Progress Note ---
Date of Encounter: 11/29/16 Time of Encounter: 11:42 - Assessment and Plan (1) Charcot ankle Current Visit: Yes Status: Acute Patient will remain nonweightbearing. winery worker will work with patient to determine placement. Patient will keep the dressings intact, we will change dressing prior to the patient's discharge. The TLS drain will be changed if it reaches more than half-full or every 6 hours. Patient will follow up with me one week after discharge. We will discharge the patient wants placement has been obtained and adequate pain control is obtained. Qualifiers: Laterality: right Qualified Code(s): M14.671 - Charcot's joint, right ankle and foot (2) Pain Current Visit: Yes Status: Acute Subjective Principal diagnosis: Charcot ankle Interval history: Patient relates that she continues to feel pain and relates that she is continuing to have difficulty ambulating. Patient relates that she also began having nausea but today it is resolving. Patient denies vomiting, shortness of breath, chest pain, or calf pain. Objective - Vital Signs Vital Signs: Vital Signs Temp Pulse Resp BP Pulse Ox 11/30/16 03:41 99.3 F 76 15 123/76 96 11/29/16 23:55 98.8 F 77 16 146/76 94 L 11/29/16 19:53 99.5 F 80 16 105/65 95 11/29/16 14:51 98.2 F 82 16 121/57 96 11/29/16 12:49 97.9 F 78 16 114/62 97 11/29/16 11:00 97.9 F 70 18 159/67 99 11/29/16 06:19 98.4 F 87 18 106/67 100 Intake and Output 11/29/16 11/29/16 11/30/16 15:59 23:59 07:59 Intake Total 240 / 240 620 / 620 0 / 0 Output Total 200 / 200 0 / 0 0 / 0 Balance 40 / 40 620 / 620 0 / 0 Intake: IV Fluids 300 / 300 0.9 % Sodium Chloride 1, 300 / 300 000 ML @ 100 mls/hr IVC . Q10H [facility] Rx#:[id number] Oral 240 / 240 320 / 320 0 / 0 Output: Urine 200 / 200 0 / 0 0 / 0 Wound Drainage 0 / 0 0 / 0 0 / 0 RIght Ankle 0 / 0 0 / 0 0 / 0 Other: Meal Lunch Dinner Percent of Meal Consumed 100% 100% Weight 95.2 kg Blood Glucose* 147 119 Patient Weight 11/30/16 23:59 Weight 95.2 kg - Exam Exam: Capillary fill time intact to digits 1 through 5 bilaterally. There are no new open lesions, abrasions, or ulcerations. Sensation significantly diminished to bilateral lower extremities consistent with peripheral neuropathy and prior exam. Patient is able to dorsiflex and plantarflex digits. No pain with manual calf compression. - Lab Result Diagrams: 11/30/16 04:47 11/30/16 04:47 Labs: Abnormal lab results RBC 2.49 M/mcL (3.82-4.97) L 11/30/16 04:47 Hgb 7.6 g/dL (11.5-15.4) L 11/30/16 04:47 Hct 23.5 % (35.3-44.9) L 11/30/16 04:47 Platelet Estimate Slight Decrease (Normal) L 11/29/16 05:19 BUN 28 mg/dL (7-20) H 11/30/16 04:47 Est GFR (Non-Af Amer) 51 (> 60) L 11/30/16 04:47 Glucose 153 mg/dL (70-99) H 11/30/16 04:47 POC Glucose 119 (58-89) H 11/29/16 21:03 Calculated Osmolality 301 (280-300) H 11/30/16 04:47 Albumin 2.9 g/dL (3.5-5.0) L 11/29/16 05:19 Globulin 3.6 g/dL (2.4-3.5) H 11/29/16 05:19 Albumin/Globulin Ratio 0.8 (1.1-2.2) L 11/29/16 05:19 - VTE Documentation of Mechanical Device: Graduated compression elastic hosiery Consult Discharge Plan - Plan Additional Instructions: NO WEIGHT BEARING TO RIGHT LEG KEEP DRESSING C/D/I FOLLOW UP WITH PRIMARY DOC IN 7-10 DAYS KEEP ALL APPOINTMENTS TAKE ALL MEDS PRESCRIBED Referrals: Ayden Camarillo DPM [Partnered Physician] - 12/08/16 8:30 am Moy Eid DO [Primary Care Provider] -
[2016-11-30] MEDS: Famotidine 20 MG TABLET PO SCH ×2 (08:45→21:33)
[2016-11-30] MEDS: Valsartan 160 MG TABLET PO SCH (08:45)
[2016-11-30] MEDS: Insulin LISPRO 300 UNITS/3 ML VIAL SQ SCH ×3 (08:46→17:27)
[2016-11-30] MEDS: hydroCHLOROthiazide 25 MG TABLET PO SCH (08:46)
[2016-11-30] MEDS: *HR* Promethazine 25 MG/ML VIAL IVP PRN (11:08)
--- NOTE | 2016-11-30 14:39 | Internal Med Progress Note ---
Date of Encounter: 11/30/16 Time of Encounter: 09:00 - Assessment and plan (1) Charcot ankle Current Visit: Yes Status: Acute Assessment and plan: S/P surgery, physical therapy, plan for discharge to rehabilitation center. Management per podiatry Qualifiers: Laterality: right Qualified Code(s): M14.671 - Charcot's joint, right ankle and foot (2) Hyperkalemia Current Visit: Yes Status: Acute Assessment and plan: Resolved after Kayexalate (3) Asthma Current Visit: Yes Status: Chronic Assessment and plan: Stable. Nebulizer when necessary. Qualifiers: Asthma severity: unspecified severity Asthma complication type: uncomplicated Qualified Code(s): J45.909 - Unspecified asthma, uncomplicated (4) Hypertension Current Visit: Yes Status: Chronic Assessment and plan: Blood pressure is well controlled. Continue home medication Qualifiers: Hypertension type: essential hypertension Qualified Code(s): I10 - Essential (primary) hypertension (5) Type 2 diabetes mellitus Current Visit: Yes Status: Chronic Assessment and plan: Patient is on basal and sliding scale insulin. Adjust the dosage to get ideal blood sugar control. Now Glu level is stable. Qualifiers: Diabetes mellitus complication status: without complication Diabetes mellitus terminal make up operator insulin use: with terminal make up operator use Qualified Code(s): E11.9 - Type 2 diabetes mellitus without complications; Z79.4 - technician terminal and repeater (current) use of insulin (6) DVT prophylaxis Current Visit: Yes Status: Acute Assessment and plan: heparin subcutaneously (7) Nausea Current Visit: Yes Status: Acute Assessment and plan: Improving. (8) Anemia due to blood loss, acute Current Visit: Yes Status: Acute Assessment and plan: Patient has hemoglobin drop, etiology is undetermined. Patient had surgery but had minimal blood loss. We will check guaiac tests to rule out GI bleeding. Vital signs stable now, we will continue follow H&H - Time Spent With Patient 25 - 35 minutes - Subjective Interval history: Patient is a 61-year-old female admitted to podiatry service for postoperative charcot ankle. Medical consult for comorbidities. Her past medical history is significant for asthma, diabetes, hypertension. Patient was seen and examined. She c/o mild nausea, no vomiting. She has no fever, vital signs stable. Her blood sugar and blood pressure are stable. Continue physical therapy and plan for rehabilitation discharge. The hemoglobin drop has been noticed, we will check a guaiac test. - Constitutional Vitals: Temp Pulse Resp BP Pulse Ox 98.3 F 68 16 135/77 96 11/30/16 10:17 11/30/16 10:17 11/30/16 10:17 11/30/16 10:11/30/16 10:17 General appearance: Present: A&O X 3, no acute distress - Head Head exam: Present: atraumatic, normocephalic - Eye Eye exam: Present: PERRL, conjuntiva pink, sclera anicteric Pupils: Present: PERRL - Neck Neck exam general surgery: Present: supple, trachea midline. Absent: lymphadenopathy - Respiratory Respiratory exam: Present: CTAB. Absent: accessory muscle use, rales, rhonchi, wheezes - Cardiovascular Cardiovascular exam: Present: RRR, +S1, +S2. Absent: diastolic murmur, gallop, rubs, systolic murmur - GI/Abdominal GI/Abdominal exam: Present: normal bowel sounds, soft, no peritoneal signs. Absent: distended, tenderness - Extremities Exam Extremities exam: Present: warm, radial pulses palpable and symetrical. Absent : calf tenderness, cyanotic, pedal edema - Neurological Exam Neurological exam: Present: CN II-XII intact, oriented X3, no focal deficits. Absent: pronater drift, facial droop, speech deficit - Skin Skin exam: Present: dry, intact Internal Medicine: Result - Labs CBC & Chem 7: 11/30/16 04:47 11/30/16 04:47 Labs: Short CBC 11/30/16 Range/Units 04:47 WBC 7.8 (4.3-11.1) K/mcL Hgb 7.6 L (11.5-15.4) g/dL Hct 23.5 L (35.3-44.9) % Plt Count 158 (140-400) K/mcL Neutrophils # 4.8 (1.6-8.9) K/mcL BMP 11/30/16 04:47 Sodium 141 Potassium 3.9 Chloride 109 Carbon Dioxide 25 BUN 28 H Creatinine 1.09 Glucose 153 H Calcium 9.0 - VTE Documentation of Mechanical Device: Graduated compression elastic hosiery Consult Discharge Plan - Plan Additional Instructions: NO WEIGHT BEARING TO RIGHT LEG KEEP DRESSING C/D/I FOLLOW UP WITH PRIMARY DOC IN 7-10 DAYS KEEP ALL APPOINTMENTS TAKE ALL MEDS PRESCRIBED Referrals: Ayden Camarillo DPM [Partnered Physician] - 12/08/16 8:30 am Moy Eid DO [Primary Care Provider] -
[2016-11-30] MEDS: Lactulose Oral Soln 20 GM/30 ML UDC PO SCH ×2 (16:23→21:33)
[2016-11-30] MEDS: Insulin DETEMIR 100 UNIT/ML X5UNITS SQ SCH (21:33)
[2016-12-01] MEDS: *HR* HYDROcodone/Acet 10/325 mg TABLET PO PRN ×3 (04:57→19:29)
[2016-12-01] MEDS: *HR* Heparin 5,000 UNIT/ML VIAL SQ SCH ×2 (04:57→17:39)
[2016-12-01 06:12] LABS: BUN/Creatinine Ratio 28 (6-26); Blood Urea Nitrogen 29 mg/dL (7-20); Calcium 9.3 mg/dL (8.6-10.8); Carbon Dioxide 21 mEq/L (19-29); Chloride 110 mEq/L (98-109); Glucose 128 mg/dL (70-99); Osmolality,Calculated 299 (280-300); Sodium 141 mEq/L (136-145); eGFR For African Americans > 60 (> 60); eGFR For Non-African Americans 54 (> 60)
[2016-12-01 06:15] LABS: Potassium 5.1 mEq/L (3.5-4.5)
[2016-12-01 06:43] LABS: Basophils % 0.1 %; Eosinophils # 0.1 K/mcL (0.0-0.6); Eosinophils % 1.2 %; Hematocrit 25.3 % (35.3-44.9); Hemoglobin 8.1 g/dL (11.5-15.4); Immature Granulocytes % 0.5 % (0-4); Lymphocytes # 1.8 K/mcL (0.6-4.6); Lymphocytes % 23.3 %; Mean Corpuscular Hemoglobin 30.2 pg (28.0-33.3); Mean Corpuscular Volume 94.4 fL (83.0-100.0); Mean Platelet Volume 10.2 fL (9.4-12.4); Monocytes # 0.7 K/mcL (0.0-1.3); Monocytes % 9.3 %; Neutrophils # 5.1 K/mcL (1.6-8.9); Platelet Count 188 K/mcL (140-400); Red Blood Count 2.68 M/mcL (3.82-4.97); Red Cell Distribution Width 12.3 % (11.5-14.5); Segmented Neutrophils % 65.6 %
[2016-12-01] MEDS: Famotidine 20 MG TABLET PO SCH ×2 (09:03→22:13)
[2016-12-01] MEDS: Valsartan 160 MG TABLET PO SCH (09:03)
[2016-12-01] MEDS: hydroCHLOROthiazide 25 MG TABLET PO SCH (09:03)
[2016-12-01] MEDS: Lactulose Oral Soln 20 GM/30 ML UDC PO SCH ×2 (09:09→22:17)
[2016-12-01] MEDS: Insulin LISPRO 300 UNITS/3 ML VIAL SQ SCH ×3 (09:09→17:33)
--- NOTE | 2016-12-01 14:43 | Internal Med Progress Note ---
Date of Encounter: 12/01/16 Time of Encounter: 09:00 - Assessment and plan (1) Charcot ankle Current Visit: Yes Status: Acute Assessment and plan: S/P surgery, physical therapy, plan for discharge to rehabilitation center. Management per podiatry Qualifiers: Laterality: right Qualified Code(s): M14.671 - Charcot's joint, right ankle and foot (2) Hyperkalemia Current Visit: Yes Status: Acute Assessment and plan: We will give another dose of Kayexalate (3) Asthma Current Visit: Yes Status: Chronic Assessment and plan: Stable. Nebulizer when necessary. Qualifiers: Asthma severity: unspecified severity Asthma complication type: uncomplicated Qualified Code(s): J45.909 - Unspecified asthma, uncomplicated (4) Hypertension Current Visit: Yes Status: Chronic Assessment and plan: Blood pressure is well controlled. Continue home medication Qualifiers: Hypertension type: essential hypertension Qualified Code(s): I10 - Essential (primary) hypertension (5) Type 2 diabetes mellitus Current Visit: Yes Status: Chronic Assessment and plan: Patient is on basal and sliding scale insulin. Adjust the dosage to get ideal blood sugar control. Now Glu level is stable. Qualifiers: Diabetes mellitus complication status: without complication Diabetes mellitus intermediate project manager insulin use: with intermediate project manager use Qualified Code(s): E11.9 - Type 2 diabetes mellitus without complications; Z79.4 - USP (current) use of insulin (6) DVT prophylaxis Current Visit: Yes Status: Acute Assessment and plan: heparin subcutaneously (7) Nausea Current Visit: Yes Status: Acute Assessment and plan: Improving. (8) Anemia due to blood loss, acute Current Visit: Yes Status: Acute Assessment and plan: Patient has hemoglobin drop, possibly due to surgical and the post surgery blood loss. Vital signs stable now, we will continue follow H&H. Add ferrous sulfate 325mg qd. - Time Spent With Patient 25 - 35 minutes - Subjective Interval history: Patient is a 61-year-old female admitted to podiatry service for postoperative charcot ankle. Medical consult for comorbidities. Her past medical history is significant for asthma, diabetes, hypertension. Patient was seen and examined. She c/o mild nausea, no vomiting. She has no fever, vital signs stable. Her blood sugar and blood pressure are stable. Continue physical therapy and plan for rehabilitation discharge. The hemoglobin drop has been noticed, patient said that she has blood loss from the wound after surgery. Today the hemoglobin level is 8.1. - Constitutional Vitals: Temp Pulse Resp BP Pulse Ox 98.6 F 79 16 132/75 97 12/01/16 12:09 12/01/16 12:09 12/01/16 12:09 12/01/16 12:09 12/01/16 12:09 General appearance: Present: A&O X 3, no acute distress, answers questions appropriately - Head Head exam: Present: atraumatic, normocephalic - Eye Eye exam: Present: PERRL, conjuntiva pink, sclera anicteric Pupils: Present: PERRL - Neck Neck exam general surgery: Present: supple, trachea midline. Absent: lymphadenopathy - Respiratory Respiratory exam: Present: CTAB. Absent: accessory muscle use, rales, rhonchi, wheezes - Cardiovascular Cardiovascular exam: Present: RRR, +S1, +S2. Absent: diastolic murmur, gallop, rubs, systolic murmur - GI/Abdominal GI/Abdominal exam: Present: normal bowel sounds, soft, no peritoneal signs. Absent: distended, tenderness - Extremities Exam Extremities exam: Present: warm, radial pulses palpable and symetrical. Absent : calf tenderness, cyanotic, pedal edema - Neurological Exam Neurological exam: Present: CN II-XII intact, oriented X3, no focal deficits. Absent: pronater drift, facial droop, speech deficit - Skin Skin exam: Present: dry, intact Internal Medicine: Result - Labs CBC & Chem 7: 12/01/16 06:28 12/01/16 05:46 Labs: Short CBC 12/01/16 Range/Units 06:28 WBC 7.7 (4.3-11.1) K/mcL Hgb 8.1 L (11.5-15.4) g/dL Hct 25.3 L (35.3-44.9) % Plt Count 188 (140-400) K/mcL Neutrophils # 5.1 (1.6-8.9) K/mcL BMP 12/01/16 05:46 Sodium 141 Potassium 5.1 H D Chloride 110 H Carbon Dioxide 21 BUN 29 H Creatinine 1.05 Glucose 128 H Calcium 9.3 - VTE Documentation of Mechanical Device: Graduated compression elastic hosiery Consult Discharge Plan - Plan Additional Instructions: NO WEIGHT BEARING TO RIGHT LEG KEEP DRESSING C/D/I FOLLOW UP WITH PRIMARY DOC IN 7-10 DAYS KEEP ALL APPOINTMENTS TAKE ALL MEDS PRESCRIBED Referrals: Ayden Camarillo DPM [Partnered Physician] - 12/08/16 8:30 am Moy Eid DO [Primary Care Provider] - 12/07/16 10:00 am
[2016-12-01] MEDS: Insulin DETEMIR 100 UNIT/ML X5UNITS SQ SCH (22:14)
--- NOTE | 2016-12-01 22:51 | Podiatry Progress Note ---
Date of Encounter: 12/01/16 Time of Encounter: 10:00 - Assessment and Plan (1) Charcot ankle Current Visit: Yes Status: Acute Complete dressing change and evaluation at bedside Surgical site cleansed with hydrogen peroxide, painted with betadine and dressing applied with posterior splint Ice compression reapplied Patient will go home non weight bearing with posterior splint- unsure of patients possible ECF placement- will follow up with SW Will plan to d/c home tomorrow pending medical clearance Will follow up in 1 week after discharge Keep dressing intact and keep surgical site clean and dry Call with any fevers, chills, n/v flu like symptoms or noted numbness, tingling or cooling to foot Qualifiers: Laterality: right Qualified Code(s): M14.671 - Charcot's joint, right ankle and foot Subjective Principal diagnosis: Charcot ankle Interval history: Patient underwent surgery for charcot foot with on 11/26/16.. Arthrodesis of ankle joint, Arthrodesis of subtalar joint., Capsulotomy of the midfoot, extensive talotibial capsulotomy with ligamentous/tendon release, Resection of prominent bone of the midfoot, Procurement of bone graft and placement of bone graft in the subtalar and ankle joint. Patient resting comfortably on arrival with dressing intact. Patient anxious but rates pain 6/ 10 and tolerable. Patient denies any fevers, chills, flu like symptoms overnight. Patient denies any calf pain. Objective - Vital Signs Vital Signs: Vital Signs Temp Pulse Resp BP Pulse Ox 12/01/16 20:10 98.2 F 73 15 134/73 98 12/01/16 16:55 98.3 F 70 16 125/64 97 12/01/16 12:09 98.6 F 79 16 132/75 97 12/01/16 07:47 98.4 F 80 16 144/75 96 12/01/16 04:24 98.1 F 89 16 138/67 94 L 12/01/16 00:17 99.2 F 74 16 116/68 94 L Intake and Output 12/01/16 12/01/16 12/01/16 07:59 15:59 23:59 Intake Total 0 / 0 0 / 0 240 / 240 Output Total 200 / 200 0 / 0 0 / 0 Balance -200 / -200 0 / 0 240 / 240 Intake: Oral 0 / 0 0 / 0 240 / 240 Output: Urine 200 / 200 Wound Drainage 0 / 0 0 / 0 RIght Ankle 0 / 0 0 / 0 Other: Meal Lunch Dinner Percent of Meal Consumed 100% 100% Stool Size Moderate Stool Consistency liquid soft Stool Color Brown # Voids 1 1 # Bowel Movements 1 Blood Glucose* 140 172 136 - Exam Exam: General Examination: CONSTITUTIONAL: Alert, oriented, in no acute distress, non-toxic. EXTREMITIES: CFT 3 seconds all toes. Edema +1 and pedal pulses palpable. SKIN: Skin with decreased turgor, decreased subcutaneous tissue, skin thin and shiny with trophic changes associated with comorbidities as described in history.. NEUROLOGIC:Intact sensation to moderate touch Surgical site- Dressing and posterior splint removed without issue All surgical sites examined- vivian intact and incision likes clean, dry, intact and free of clinical signs of infection Small amount of maceration noted to incision to plantar aspect of foot near calcaneal region Mild amount of post operative edema and erythema noted along surgical lines. NO warmth, odor or purulent drainage Small amount of serous drainage noted along lateral border surgical line. Sensation intact Pulses palpable No areas of pressure or ulceration noted to foot No calf pain with palpation - Lab Result Diagrams: 12/02/16 04:43 12/02/16 04:43 Labs: Abnormal lab results RBC 2.68 M/mcL (3.82-4.97) L 12/01/16 06:28 Hgb 8.1 g/dL (11.5-15.4) L 12/01/16 06:28 Hct 25.3 % (35.3-44.9) L 12/01/16 06:28 Platelet Estimate Slight Decrease (Normal) L 11/29/16 05:19 Potassium 5.1 mEq/L (3.5-4.5) H D 12/01/16 05:46 Chloride 110 mEq/L (98-109) H 12/01/16 05:46 BUN 29 mg/dL (7-20) H 12/01/16 05:46 Est GFR (Non-Af Amer) 54 (> 60) L 12/01/16 05:46 BUN/Creatinine Ratio 28 (6-26) H 12/01/16 05:46 Glucose 128 mg/dL (70-99) H 12/01/16 05:46 POC Glucose 136 (58-89) H 12/01/16 20:16 Albumin 2.9 g/dL (3.5-5.0) L 11/29/16 05:19 Globulin 3.6 g/dL (2.4-3.5) H 11/29/16 05:19 Albumin/Globulin Ratio 0.8 (1.1-2.2) L 11/29/16 05:19 - VTE Documentation of Mechanical Device: Graduated compression elastic hosiery Consult Discharge Plan - Plan Additional Instructions: NO WEIGHT BEARING TO RIGHT LEG KEEP DRESSING C/D/I FOLLOW UP WITH PRIMARY DOC IN 7-10 DAYS KEEP ALL APPOINTMENTS TAKE ALL MEDS PRESCRIBED Referrals: Ayden Camarillo DPM [Partnered Physician] - 12/08/16 8:30 am Moy Eid DO [Primary Care Provider] - 12/07/16 10:00 am
[2016-12-02 05:22] LABS: Basophils % 0.1 %; Eosinophils # 0.1 K/mcL (0.0-0.6); Eosinophils % 1.2 %; Hematocrit 23.1 % (35.3-44.9); Hemoglobin 7.5 g/dL (11.5-15.4); Immature Granulocytes % 0.3 % (0-4); Lymphocytes # 1.7 K/mcL (0.6-4.6); Lymphocytes % 25.5 %; Mean Corpuscular HGB Conc 32.5 g/dL (31.6-35.5); Mean Corpuscular Hemoglobin 30.6 pg (28.0-33.3); Mean Corpuscular Volume 94.3 fL (83.0-100.0); Mean Platelet Volume 10.2 fL (9.4-12.4); Monocytes # 0.6 K/mcL (0.0-1.3); Neutrophils # 4.3 K/mcL (1.6-8.9); Platelet Count 177 K/mcL (140-400); Red Blood Count 2.45 M/mcL (3.82-4.97); Red Cell Distribution Width 12.2 % (11.5-14.5); Segmented Neutrophils % 63.9 %
[2016-12-02 05:35] LABS: BUN/Creatinine Ratio 25 (6-26); Blood Urea Nitrogen 24 mg/dL (7-20); Calcium 8.8 mg/dL (8.6-10.8); Carbon Dioxide 28 mEq/L (19-29); Chloride 107 mEq/L (98-109); Glucose 124 mg/dL (70-99); Osmolality,Calculated 297 (280-300); Sodium 141 mEq/L (136-145); eGFR For African Americans > 60 (> 60); eGFR For Non-African Americans 59 (> 60)
[2016-12-02] MEDS: *HR* HYDROcodone/Acet 10/325 mg TABLET PO PRN ×3 (05:37→19:30)
[2016-12-02] MEDS: *HR* Heparin 5,000 UNIT/ML VIAL SQ SCH ×2 (05:37→16:13)
[2016-12-02 05:40] LABS: Potassium 3.7 mEq/L (3.5-4.5)
[2016-12-02] MEDS: Lactulose Oral Soln 20 GM/30 ML UDC PO SCH ×2 (09:04→20:59)
[2016-12-02] MEDS: Valsartan 160 MG TABLET PO SCH (09:04)
[2016-12-02] MEDS: hydroCHLOROthiazide 25 MG TABLET PO SCH (09:05)
[2016-12-02] MEDS: Famotidine 20 MG TABLET PO SCH ×2 (09:05→20:59)
[2016-12-02] MEDS: Insulin LISPRO 300 UNITS/3 ML VIAL SQ SCH ×3 (09:06→16:21)
--- NOTE | 2016-12-02 12:57 | Podiatry Progress Note ---
Date of Encounter: 12/02/16 Time of Encounter: 11:45 - Assessment and Plan (1) Charcot ankle Current Visit: Yes Status: Acute Spoke with SW, PT ok for ECF placement but SW unsure of insurance coverage at this time, will follow up Medical managing Hgb Patient will go home non weight bearing with posterior splint May discharge from Podiatry standpoint pending medical clearance Will follow up in 1 week after discharge Keep dressing intact and keep surgical site clean and dry Call with any fevers, chills, n/v flu like symptoms or noted numbness, tingling or cooling to foot Qualifiers: Laterality: right Qualified Code(s): M14.671 - Charcot's joint, right ankle and foot Subjective Principal diagnosis: Charcot ankle Interval history: Patient underwent surgery for charcot foot with on 11/26/16.. Arthrodesis of ankle joint, Arthrodesis of subtalar joint., Capsulotomy of the midfoot, extensive talotibial capsulotomy with ligamentous/tendon release, Resection of prominent bone of the midfoot, Procurement of bone graft and placement of bone graft in the subtalar and ankle joint. Patient resting comfortably on arrival with dressing intact. Patient anxious but rates pain 7/ 10 and tolerable. Patient denies any fevers, chills, flu like symptoms overnight. Patient denies any calf pain. New IV being placed at bedside per RN. Patient Hgb 7.5 this am and she will be receiving a blood transfusion. Patient was also treated yesterday for K 5.1, now 3.6. Patient denies any dizziness or feelings of being light headed. Objective - Vital Signs Vital Signs: Vital Signs Temp Pulse Resp BP Pulse Ox 12/02/16 12:04 98.0 F 72 16 128/79 99 12/02/16 07:09 98.8 F 67 16 131/75 94 L 12/02/16 03:40 97.9 F 68 18 106/66 95 12/01/16 23:18 98.1 F 74 18 107/65 95 12/01/16 20:10 98.2 F 73 15 134/73 98 12/01/16 16:55 98.3 F 70 16 125/64 97 Intake and Output 12/01/16 12/02/16 12/02/16 23:59 07:59 15:59 Intake Total 240 / 240 120 / 120 Output Total 0 / 0 0 / 0 0 / 0 Balance 240 / 240 0 / 0 120 / 120 Intake: Oral 240 / 240 120 / 120 Output: Urine 0 / 0 0 / 0 0 / 0 Wound Drainage 0 / 0 RIght Ankle 0 / 0 Other: Meal Dinner Breakfast Percent of Meal Consumed 100% 75% # Voids 1 1 Blood Glucose* 136 124 154 - Exam Exam: General Examination: CONSTITUTIONAL: Alert, oriented, in no acute distress, non-toxic. EXTREMITIES: CFT 3 seconds all toes. Edema +1 and pedal pulses palpable. SKIN: Skin with decreased turgor, decreased subcutaneous tissue, skin thin and shiny with trophic changes associated with comorbidities as described in history.. NEUROLOGIC: Intact sensation to light touch No calf pain with palpation Surgical dressing intact- will leave at this time Leg elevated above heart level at this time and heel floating to avoid pressure - Lab Result Diagrams: 12/02/16 04:43 12/02/16 04:43 Labs: Abnormal lab results RBC 2.45 M/mcL (3.82-4.97) L 12/02/16 04:43 Hgb 7.5 g/dL (11.5-15.4) L 12/02/16 04:43 Hct 23.1 % (35.3-44.9) L 12/02/16 04:43 Platelet Estimate Slight Decrease (Normal) L 11/29/16 05:19 BUN 24 mg/dL (7-20) H 12/02/16 04:43 Est GFR (Non-Af Amer) 59 (> 60) L 12/02/16 04:43 Glucose 124 mg/dL (70-99) H 12/02/16 04:43 POC Glucose 154 (58-89) H 12/02/16 11:54 Albumin 2.9 g/dL (3.5-5.0) L 11/29/16 05:19 Globulin 3.6 g/dL (2.4-3.5) H 11/29/16 05:19 Albumin/Globulin Ratio 0.8 (1.1-2.2) L 11/29/16 05:19 - VTE Documentation of Mechanical Device: Graduated compression elastic hosiery Consult Discharge Plan - Plan Additional Instructions: NO WEIGHT BEARING TO RIGHT LEG KEEP DRESSING C/D/I FOLLOW UP WITH PRIMARY DOC IN 7-10 DAYS KEEP ALL APPOINTMENTS TAKE ALL MEDS PRESCRIBED Referrals: Ayden Camarillo DPM [Partnered Physician] - 12/08/16 8:30 am Moy Eid DO [Primary Care Provider] - 12/07/16 10:00 am
[2016-12-02] MEDS ORDERED: 0.9 % Sodium Chloride 250 ML ONE (13:34)
--- NOTE | 2016-12-02 14:37 | Internal Med Progress Note ---
Date of Encounter: 12/02/16 Time of Encounter: 10:00 - Assessment and plan (1) Charcot ankle Current Visit: Yes Status: Acute Assessment and plan: S/P surgery, physical therapy, plan for discharge to rehabilitation center. Management per podiatry Qualifiers: Laterality: right Qualified Code(s): M14.671 - Charcot's joint, right ankle and foot (2) Hyperkalemia Current Visit: Yes Status: Acute Assessment and plan: Improvement after treatment (3) Asthma Current Visit: Yes Status: Chronic Assessment and plan: Stable. Nebulizer when necessary. Qualifiers: Asthma severity: unspecified severity Asthma complication type: uncomplicated Qualified Code(s): J45.909 - Unspecified asthma, uncomplicated (4) Hypertension Current Visit: Yes Status: Chronic Assessment and plan: Blood pressure is well controlled. Continue home medication Qualifiers: Hypertension type: essential hypertension Qualified Code(s): I10 - Essential (primary) hypertension (5) Type 2 diabetes mellitus Current Visit: Yes Status: Chronic Assessment and plan: Patient is on basal and sliding scale insulin. Adjust the dosage to get ideal blood sugar control. Now Glu level is stable. Qualifiers: Diabetes mellitus complication status: without complication Diabetes mellitus senior care insulin use: with adjunct faculty for medical terminology use Qualified Code(s): E11.9 - Type 2 diabetes mellitus without complications; Z79.4 - termite control technician (current) use of insulin (6) DVT prophylaxis Current Visit: Yes Status: Acute Assessment and plan: heparin subcutaneously (7) Nausea Current Visit: Yes Status: Acute Assessment and plan: Improving. (8) Anemia due to blood loss, acute Current Visit: Yes Status: Acute Assessment and plan: Patient has hemoglobin drop, possibly due to surgical and the post surgery blood loss. Vital signs stable now, we will give her 1 unit of blood transfusion today, follow H&H. Add ferrous sulfate 325mg qd. - Time Spent With Patient 25 - 35 minutes - Subjective Interval history: Patient is a 61-year-old female admitted to podiatry service for postoperative charcot ankle. Medical consult for comorbidities. Her past medical history is significant for asthma, diabetes, hypertension. Patient was seen and examined. She c/o mild nausea, no vomiting. She has no fever, vital signs stable. Her blood sugar and blood pressure are stable. Continue physical therapy and plan for rehabilitation discharge (or home discharge). The hemoglobin drop has been noticed, patient said that she has blood loss from the wound after surgery. Will give 1 unit PRBC today. - Constitutional Vitals: Temp Pulse Resp BP Pulse Ox 98.8 F 68 18 121/71 94 L 12/02/16 13:52 12/02/16 13:52 12/02/16 13:52 12/02/16 13:52 12/02/16 13:52 General appearance: Present: A&O X 3, no acute distress, answers questions appropriately - Head Head exam: Present: atraumatic, normocephalic - Eye Eye exam: Present: PERRL, conjuntiva pink, sclera anicteric Pupils: Present: PERRL - Neck Neck exam general surgery: Present: supple, trachea midline. Absent: lymphadenopathy - Respiratory Respiratory exam: Present: CTAB. Absent: accessory muscle use, rales, rhonchi, wheezes - Cardiovascular Cardiovascular exam: Present: RRR, +S1, +S2. Absent: diastolic murmur, gallop, rubs, systolic murmur - GI/Abdominal GI/Abdominal exam: Present: normal bowel sounds, soft, no peritoneal signs. Absent: distended, tenderness - Extremities Exam Extremities exam: Present: warm, radial pulses palpable and symetrical. Absent : calf tenderness, cyanotic, pedal edema Additional comments: Right ankle S/P surgery, well dressed - Neurological Exam Neurological exam: Present: CN II-XII intact, oriented X3, no focal deficits. Absent: pronater drift, facial droop, speech deficit - Skin Skin exam: Present: dry, intact Internal Medicine: Result - Labs CBC & Chem 7: 12/02/16 04:43 12/02/16 04:43 Labs: Short CBC 12/02/16 Range/Units 04:43 WBC 6.8 (4.3-11.1) K/mcL Hgb 7.5 L (11.5-15.4) g/dL Hct 23.1 L (35.3-44.9) % Plt Count 177 (140-400) K/mcL Neutrophils # 4.3 (1.6-8.9) K/mcL BMP 12/02/16 04:43 Sodium 141 Potassium 3.7 D Chloride 107 Carbon Dioxide 28 BUN 24 H Creatinine 0.96 Glucose 124 H Calcium 8.8 - VTE Documentation of Mechanical Device: Graduated compression elastic hosiery Consult Discharge Plan - Plan Additional Instructions: NO WEIGHT BEARING TO RIGHT LEG KEEP DRESSING C/D/I FOLLOW UP WITH PRIMARY DOC IN 7-10 DAYS KEEP ALL APPOINTMENTS TAKE ALL MEDS PRESCRIBED Referrals: Ayden Camarillo DPM [Partnered Physician] - 12/08/16 8:30 am Moy Eid DO [Primary Care Provider] - 12/07/16 10:00 am
[2016-12-02 18:40] LABS: Hematocrit 27.7 % (35.3-44.9)
[2016-12-02 18:42] LABS: Hemoglobin 9.3 g/dL (11.5-15.4)
[2016-12-02] MEDS: Insulin DETEMIR 100 UNIT/ML X5UNITS SQ SCH (20:59)
[2016-12-03 05:07] LABS: Basophils % 0.4 %; Eosinophils # 0.1 K/mcL (0.0-0.6); Eosinophils % 1.5 %; Hematocrit 26.9 % (35.3-44.9); Immature Granulocytes % 0.4 % (0-4); Lymphocytes % 26.6 %; Mean Corpuscular HGB Conc 33.5 g/dL (31.6-35.5); Mean Corpuscular Hemoglobin 30.7 pg (28.0-33.3); Mean Corpuscular Volume 91.8 fL (83.0-100.0); Mean Platelet Volume 9.9 fL (9.4-12.4); Monocytes # 0.7 K/mcL (0.0-1.3); Monocytes % 9.7 %; Neutrophils # 4.5 K/mcL (1.6-8.9); Platelet Count 203 K/mcL (140-400); Red Blood Count 2.93 M/mcL (3.82-4.97); Red Cell Distribution Width 12.7 % (11.5-14.5); Segmented Neutrophils % 61.4 %
[2016-12-03 05:26] LABS: BUN/Creatinine Ratio 23 (6-26); Blood Urea Nitrogen 21 mg/dL (7-20); Carbon Dioxide 25 mEq/L (19-29); Chloride 107 mEq/L (98-109); Glucose 123 mg/dL (70-99); Osmolality,Calculated 298 (280-300); Potassium 3.6 mEq/L (3.5-4.5); Sodium 142 mEq/L (136-145); eGFR For African Americans > 60 (> 60); eGFR For Non-African Americans > 60 (> 60)
[2016-12-03] MEDS: *HR* Heparin 5,000 UNIT/ML VIAL SQ SCH ×2 (05:55→17:16)
[2016-12-03] MEDS: *HR* HYDROcodone/Acet 10/325 mg TABLET PO PRN ×3 (05:55→23:37)
[2016-12-03] MEDS: Insulin LISPRO 300 UNITS/3 ML VIAL SQ SCH ×3 (08:32→17:08)
[2016-12-03] MEDS: Famotidine 20 MG TABLET PO SCH ×2 (10:26→20:08)
[2016-12-03] MEDS: Lactulose Oral Soln 20 GM/30 ML UDC PO SCH (10:28)
[2016-12-03] MEDS: Valsartan 160 MG TABLET PO SCH (10:28)
[2016-12-03] MEDS: hydroCHLOROthiazide 25 MG TABLET PO SCH (10:31)
[2016-12-03] MEDS ORDERED: MOM Conc 10 ML UD.LIQ PO ONE (10:32)
[2016-12-03] MEDS: Ondansetron 4 MG/2 ML VIAL IVP PRN (10:51)
--- NOTE | 2016-12-03 12:24 | Internal Med Progress Note ---
Date of Encounter: 12/03/16 Time of Encounter: 09:00 - Assessment and plan (1) Charcot ankle Current Visit: Yes Status: Acute Assessment and plan: S/P surgery, physical therapy, plan for discharge to rehabilitation center. Management per podiatry Qualifiers: Laterality: right Qualified Code(s): M14.671 - Charcot's joint, right ankle and foot (2) Hyperkalemia Current Visit: Yes Status: Acute Assessment and plan: Improvement after treatment (3) Asthma Current Visit: Yes Status: Chronic Assessment and plan: Stable. Nebulizer when necessary. Qualifiers: Asthma severity: unspecified severity Asthma complication type: uncomplicated Qualified Code(s): J45.909 - Unspecified asthma, uncomplicated (4) Hypertension Current Visit: Yes Status: Chronic Assessment and plan: Blood pressure is well controlled. Continue home medication Qualifiers: Hypertension type: essential hypertension Qualified Code(s): I10 - Essential (primary) hypertension (5) Type 2 diabetes mellitus Current Visit: Yes Status: Chronic Assessment and plan: Patient is on basal and sliding scale insulin. Adjust the dosage to get ideal blood sugar control. Now Glu level is stable. Qualifiers: Diabetes mellitus complication status: without complication Diabetes mellitus detention insulin use: with intermodal dispatcher use Qualified Code(s): E11.9 - Type 2 diabetes mellitus without complications; Z79.4 - intermediate project manager (current) use of insulin (6) DVT prophylaxis Current Visit: Yes Status: Acute Assessment and plan: heparin subcutaneously (7) Nausea Current Visit: Yes Status: Acute Assessment and plan: Improved. (8) Anemia due to blood loss, acute Current Visit: Yes Status: Acute Assessment and plan: Hemoglobin stable after 1 unit of blood transfusion. Continue ferrous sulfate 325mg qd. - Time Spent With Patient 25 - 35 minutes - Subjective Interval history: Patient is a 61-year-old female admitted to podiatry service for postoperative charcot ankle. Medical consult for comorbidities. Her past medical history is significant for asthma, diabetes, hypertension. Patient was seen and examined. She has no nausea, no vomiting. She complained of discomfort after lactulose use (which is ordered for her constipation). Would DC lactulose, given her milk of magnesia 1 dose. Her blood sugar and blood pressure are stable. Her hemoglobin is stable after transfusion. Continue physical therapy and plan for rehabilitation discharge (or home discharge). From internal medicine standpoint, she is cleared for discharge. Patient can resume her home diabetes and hypertension medication. She can continue ferrous sulfate 325 mg by mouth daily for her anemia. - Constitutional Vitals: Temp Pulse Resp BP Pulse Ox 97.9 F 66 14 154/85 94 L 12/03/16 10:43 12/03/16 10:43 12/03/16 10:43 12/03/16 10:43 12/03/16 10:43 General appearance: Present: A&O X 3, no acute distress, answers questions appropriately - Head Head exam: Present: atraumatic, normocephalic - Eye Eye exam: Present: PERRL, conjuntiva pink, sclera anicteric Pupils: Present: PERRL - Neck Neck exam general surgery: Present: supple, trachea midline. Absent: lymphadenopathy - Respiratory Respiratory exam: Present: CTAB. Absent: accessory muscle use, rales, rhonchi, wheezes - Cardiovascular Cardiovascular exam: Present: RRR, +S1, +S2. Absent: diastolic murmur, gallop, rubs, systolic murmur - GI/Abdominal GI/Abdominal exam: Present: normal bowel sounds, soft, no peritoneal signs. Absent: distended, tenderness - Extremities Exam Extremities exam: Present: warm, radial pulses palpable and symetrical. Absent : calf tenderness, cyanotic, pedal edema Additional comments: Right ankle S/P surgery, well-dressed. - Neurological Exam Neurological exam: Present: CN II-XII intact, oriented X3, no focal deficits. Absent: pronater drift, facial droop, speech deficit - Skin Skin exam: Present: dry, intact Internal Medicine: Result - Labs CBC & Chem 7: 12/03/16 04:43 12/03/16 04:43 Labs: Short CBC 12/02/16 12/03/16 Range/Units 18:15 04:43 WBC 7.3 (4.3-11.1) K/mcL Hgb 9.3 L D 9.0 L (11.5-15.4) g/dL Hct 27.7 L 26.9 L (35.3-44.9) % Plt Count 203 (140-400) K/mcL Neutrophils # 4.5 (1.6-8.9) K/mcL BMP 12/03/16 04:43 Sodium 142 Potassium 3.6 Chloride 107 Carbon Dioxide 25 BUN 21 H Creatinine 0.91 Glucose 123 H Calcium 9.0 - VTE Documentation of Mechanical Device: Intermittent pneumatic compression device Consult Discharge Plan - Plan Additional Instructions: NO WEIGHT BEARING TO RIGHT LEG KEEP DRESSING C/D/I FOLLOW UP WITH PRIMARY DOC IN 7-10 DAYS KEEP ALL APPOINTMENTS TAKE ALL MEDS PRESCRIBED Referrals: Ayden Camarillo DPM [Partnered Physician] - 12/08/16 8:30 am Moy Eid DO [Primary Care Provider] - 12/07/16 10:00 am
--- NOTE | 2016-12-03 17:14 | Podiatry Progress Note ---
Date of Encounter: 12/03/16 Time of Encounter: 12:00 - Assessment and Plan (1) Charcot ankle Current Visit: Yes Status: Acute Spoke with SW and RN - states we are unable to make her inpatient and she does not qualify for rehab placement but PT evaluation states she is not safe to go home. Patient is unable to stand, unable to step onto a stair and unable to maintain care for herself [place] [facility] [place] continue to follow- unable to release patient until it is safe to do so Medial managing nausea Patient will go home non weight bearing with posterior splint May discharge from Podiatry standpoint pending medical clearance Will follow up in 1 week after discharge Keep dressing intact and keep surgical site clean and dry Call with any fevers, chills, n/v flu like symptoms or noted numbness, tingling or cooling to foot Qualifiers: Laterality: right Qualified Code(s): M14.671 - Charcot's joint, right ankle and foot Subjective Principal diagnosis: Charcot ankle Interval history: Patient underwent surgery for charcot foot with on 11/26/16.. Arthrodesis of ankle joint, Arthrodesis of subtalar joint., Capsulotomy of the midfoot, extensive talotibial capsulotomy with ligamentous/tendon release, Resection of prominent bone of the midfoot, Procurement of bone graft and placement of bone graft in the subtalar and ankle joint. Patient resting comfortably on arrival with dressing intact. States pain is tolerable but she is nauseated at this time and has been since last night. States the nurse just gave her something but it has not started working yet. Patient denies any fevers , chills, flu like symptoms overnight. Patient denies any calf pain. Patients sister at bedside. Dressing to RLE intact and without signs of drainage or issue. Objective - Vital Signs Vital Signs: Vital Signs Temp Pulse Resp BP Pulse Ox 12/03/16 15:02 98.2 F 66 12 141/83 98 12/03/16 10:43 97.9 F 66 14 154/85 94 L 12/03/16 07:22 97.8 F 66 14 130/80 95 12/03/16 04:30 98.1 F 69 15 106/66 95 12/03/16 00:38 97.9 F 69 16 108/66 95 12/02/16 20:18 98.3 F 71 15 123/71 96 Intake and Output 12/03/16 12/03/16 12/03/16 07:59 15:59 23:59 Intake Total 0 / 0 Output Total 200 / 200 300 / 300 Balance -200 / -200 -300 / -300 Intake: Oral 0 / 0 Output: Urine 200 / 200 300 / 300 Other: Blood Glucose* 111 148 - Exam Exam: General Examination: CONSTITUTIONAL: Alert, oriented, in no acute distress, non-toxic. EXTREMITIES: CFT 3 seconds all toes. Edema +1 and pedal pulses palpable. SKIN: Skin with decreased turgor, decreased subcutaneous tissue, skin thin and shiny with trophic changes associated with comorbidities as described in history.. NEUROLOGIC: Intact sensation to moderate touch Patient surgical site dressing intact without issue. No strike through drainage noted. Heel floated off of bed as requested. - Lab Result Diagrams: 12/03/16 04:43 12/03/16 04:43 Labs: Abnormal lab results RBC 2.93 M/mcL (3.82-4.97) L 12/03/16 04:43 Hgb 9.0 g/dL (11.5-15.4) L 12/03/16 04:43 Hct 26.9 % (35.3-44.9) L 12/03/16 04:43 Platelet Estimate Slight Decrease (Normal) L 11/29/16 05:19 BUN 21 mg/dL (7-20) H 12/03/16 04:43 Glucose 123 mg/dL (70-99) H 12/03/16 04:43 POC Glucose 126 (58-89) H 12/03/16 16:25 Albumin 2.9 g/dL (3.5-5.0) L 11/29/16 05:19 Globulin 3.6 g/dL (2.4-3.5) H 11/29/16 05:19 Albumin/Globulin Ratio 0.8 (1.1-2.2) L 11/29/16 05:19 - VTE Documentation of Mechanical Device: Intermittent pneumatic compression device Consult Discharge Plan - Plan Additional Instructions: NO WEIGHT BEARING TO RIGHT LEG KEEP DRESSING C/D/I FOLLOW UP WITH PRIMARY DOC IN 7-10 DAYS KEEP ALL APPOINTMENTS TAKE ALL MEDS PRESCRIBED Referrals: Ayden Camarillo DPM [Partnered Physician] - 12/08/16 8:30 am Moy Eid DO [Primary Care Provider] - 12/07/16 10:00 am Prescriptions: Ferrous Sulfate 325 mg PO DAILY #30 tablet
[2016-12-03] MEDS: Insulin DETEMIR 100 UNIT/ML X5UNITS SQ SCH (20:09)
[2016-12-04] MEDS: *HR* Heparin 5,000 UNIT/ML VIAL SQ SCH ×2 (05:41→17:12)
[2016-12-04] MEDS: Valsartan 160 MG TABLET PO SCH (10:00)
[2016-12-04] MEDS: Famotidine 20 MG TABLET PO SCH ×2 (10:01→20:55)
[2016-12-04] MEDS: Insulin LISPRO 300 UNITS/3 ML VIAL SQ SCH ×3 (10:01→17:03)
[2016-12-04] MEDS: hydroCHLOROthiazide 25 MG TABLET PO SCH (10:01)
--- NOTE | 2016-12-04 14:37 | Internal Med Progress Note ---
Date of Encounter: 12/04/16 Time of Encounter: 10:00 - Assessment and plan (1) Charcot ankle Current Visit: Yes Status: Acute Assessment and plan: S/P surgery, physical therapy, plan for discharge to rehabilitation center. Management per podiatry Qualifiers: Laterality: right Qualified Code(s): M14.671 - Charcot's joint, right ankle and foot (2) Hyperkalemia Current Visit: Yes Status: Acute Assessment and plan: Improvement after treatment (3) Asthma Current Visit: Yes Status: Chronic Assessment and plan: Stable. Nebulizer when necessary. Qualifiers: Asthma severity: unspecified severity Asthma complication type: uncomplicated Qualified Code(s): J45.909 - Unspecified asthma, uncomplicated (4) Hypertension Current Visit: Yes Status: Chronic Assessment and plan: Blood pressure is well controlled. Continue home medication Qualifiers: Hypertension type: essential hypertension Qualified Code(s): I10 - Essential (primary) hypertension (5) Type 2 diabetes mellitus Current Visit: Yes Status: Chronic Assessment and plan: Patient is on basal and sliding scale insulin. Adjust the dosage to get ideal blood sugar control. Now Glu level is stable. Qualifiers: Diabetes mellitus complication status: without complication Diabetes mellitus fci insulin use: with dedicated intermodal truck driver use Qualified Code(s): E11.9 - Type 2 diabetes mellitus without complications; Z79.4 - dedicated intermodal truck driver (current) use of insulin (6) DVT prophylaxis Current Visit: Yes Status: Acute Assessment and plan: heparin subcutaneously (7) Nausea Current Visit: Yes Status: Acute Assessment and plan: Improved. (8) Anemia due to blood loss, acute Current Visit: Yes Status: Acute Assessment and plan: Hemoglobin stable after 1 unit of blood transfusion. Continue ferrous sulfate 325mg qd. - Time Spent With Patient 25 - 35 minutes - Subjective Interval history: Patient is a 61-year-old female admitted to podiatry service for postoperative charcot ankle. Medical consult for comorbidities. Her past medical history is significant for asthma, diabetes, hypertension. Patient was seen and examined. She has no nausea, no vomiting. Her blood sugar and blood pressure are stable. Her hemoglobin is stable after transfusion. Continue physical therapy and plan for rehabilitation discharge ( or home discharge). From internal medicine standpoint, she is cleared for discharge. Patient can resume her home diabetes and hypertension medication. She can continue ferrous sulfate 325 mg by mouth daily for her anemia. - Constitutional Vitals: Temp Pulse Resp BP Pulse Ox 97.8 F 61 17 124/76 95 12/04/16 07:00 12/04/16 07:00 12/04/16 07:00 12/04/16 07:00 12/04/16 07:00 General appearance: Present: A&O X 3, no acute distress, answers questions appropriately - Head Head exam: Present: atraumatic, normocephalic - Eye Eye exam: Present: PERRL, conjuntiva pink, sclera anicteric Pupils: Present: PERRL - Neck Neck exam general surgery: Present: supple, trachea midline. Absent: lymphadenopathy - Respiratory Respiratory exam: Present: CTAB. Absent: accessory muscle use, rales, rhonchi, wheezes - Cardiovascular Cardiovascular exam: Present: RRR, +S1, +S2. Absent: diastolic murmur, gallop, rubs, systolic murmur - GI/Abdominal GI/Abdominal exam: Present: normal bowel sounds, soft, no peritoneal signs. Absent: distended, tenderness - Extremities Exam Extremities exam: Present: warm, radial pulses palpable and symetrical. Absent : calf tenderness, cyanotic, pedal edema Additional comments: Right ankle S/P surgery, well dressed. - Neurological Exam Neurological exam: Present: CN II-XII intact, oriented X3, no focal deficits. Absent: pronater drift, facial droop, speech deficit - Skin Skin exam: Present: dry, intact Internal Medicine: Result - Labs CBC & Chem 7: 12/03/16 04:43 12/03/16 04:43 - VTE Documentation of Mechanical Device: Intermittent pneumatic compression device Consult Discharge Plan - Plan Additional Instructions: NO WEIGHT BEARING TO RIGHT LEG KEEP DRESSING C/D/I FOLLOW UP WITH PRIMARY DOC IN 7-10 DAYS KEEP ALL APPOINTMENTS TAKE ALL MEDS PRESCRIBED Referrals: Ayden Camarillo DPM [Partnered Physician] - 12/08/16 8:30 am Moy Eid DO [Primary Care Provider] - 12/07/16 10:00 am Prescriptions: Ferrous Sulfate 325 mg PO DAILY #30 tablet
[2016-12-04] MEDS: *HR* HYDROcodone/Acet 10/325 mg TABLET PO PRN ×2 (17:12→23:26)
[2016-12-04] MEDS: Insulin DETEMIR 100 UNIT/ML X5UNITS SQ SCH (20:55)
[2016-12-05] MEDS: *HR* HYDROcodone/Acet 10/325 mg TABLET PO PRN ×2 (05:34→12:37)
[2016-12-05] MEDS: *HR* Heparin 5,000 UNIT/ML VIAL SQ SCH ×2 (05:35→17:47)
[2016-12-05 07:14] LABS: Basophils % 0.2 %; Eosinophils # 0.1 K/mcL (0.0-0.6); Eosinophils % 1.4 %; Hemoglobin 9.6 g/dL (11.5-15.4); Immature Granulocytes % 0.5 % (0-4); Lymphocytes # 1.4 K/mcL (0.6-4.6); Lymphocytes % 16.1 %; Mean Corpuscular Volume 93.8 fL (83.0-100.0); Mean Platelet Volume 10.1 fL (9.4-12.4); Monocytes # 0.7 K/mcL (0.0-1.3); Neutrophils # 6.3 K/mcL (1.6-8.9); Platelet Count 211 K/mcL (140-400); Red Cell Distribution Width 12.6 % (11.5-14.5); Segmented Neutrophils % 73.8 %
[2016-12-05 07:32] LABS: BUN/Creatinine Ratio 21 (6-26); Blood Urea Nitrogen 22 mg/dL (7-20); Calcium 9.5 mg/dL (8.6-10.8); Carbon Dioxide 26 mEq/L (19-29); Chloride 104 mEq/L (98-109); Glucose 139 mg/dL (70-99); Osmolality,Calculated 300 (280-300); Potassium 4.2 mEq/L (3.5-4.5); Sodium 142 mEq/L (136-145); eGFR For African Americans > 60 (> 60); eGFR For Non-African Americans 55 (> 60)
[2016-12-05] MEDS: hydroCHLOROthiazide 25 MG TABLET PO SCH (08:36)
[2016-12-05] MEDS: Valsartan 160 MG TABLET PO SCH (08:36)
[2016-12-05] MEDS: Famotidine 20 MG TABLET PO SCH ×2 (08:37→20:34)
--- NOTE | 2016-12-05 11:21 | Internal Med Progress Note ---
Date of Encounter: 12/05/16 Time of Encounter: 09:00 - Assessment and plan (1) Charcot ankle Current Visit: Yes Status: Acute Assessment and plan: S/P surgery, physical therapy, plan for discharge to rehabilitation center. Management per podiatry Qualifiers: Laterality: right Qualified Code(s): M14.671 - Charcot's joint, right ankle and foot (2) Hyperkalemia Current Visit: Yes Status: Acute Assessment and plan: Improvement after treatment (3) Asthma Current Visit: Yes Status: Chronic Assessment and plan: Stable. Nebulizer when necessary. Qualifiers: Asthma severity: unspecified severity Asthma complication type: uncomplicated Qualified Code(s): J45.909 - Unspecified asthma, uncomplicated (4) Hypertension Current Visit: Yes Status: Chronic Assessment and plan: Blood pressure is well controlled. Continue home medication Qualifiers: Hypertension type: essential hypertension Qualified Code(s): I10 - Essential (primary) hypertension (5) Type 2 diabetes mellitus Current Visit: Yes Status: Chronic Assessment and plan: Patient is on basal and sliding scale insulin. Adjust the dosage to get ideal blood sugar control. Now Glu level is stable. Qualifiers: Diabetes mellitus complication status: without complication Diabetes mellitus senior living insulin use: with learning and development associate use Qualified Code(s): E11.9 - Type 2 diabetes mellitus without complications; Z79.4 - flight hostess (current) use of insulin (6) DVT prophylaxis Current Visit: Yes Status: Acute Assessment and plan: heparin subcutaneously (7) Nausea Current Visit: Yes Status: Acute Assessment and plan: Improved. (8) Anemia due to blood loss, acute Current Visit: Yes Status: Acute Assessment and plan: Hemoglobin stable after 1 unit of blood transfusion. Continue ferrous sulfate 325mg qd. - Time Spent With Patient 25 - 35 minutes - Subjective Interval history: Patient is a 61-year-old female admitted to podiatry service for postoperative charcot ankle. Medical consult for comorbidities. Her past medical history is significant for asthma, diabetes, hypertension. Patient was seen and examined. She has no nausea, no vomiting. Her blood sugar and blood pressure are stable. We will change her insulin coverage to sliding scale today. Her hemoglobin is stable after transfusion. Continue physical therapy and plan for rehabilitation discharge (or home discharge). From internal medicine standpoint, she is cleared for discharge. Patient can resume her home diabetes and hypertension medication. She can continue ferrous sulfate 325 mg by mouth daily for her anemia. - Constitutional Vitals: Temp Pulse Resp BP Pulse Ox 97.9 F 65 16 131/84 96 12/05/16 06:51 12/05/16 06:51 12/05/16 06:51 12/05/16 06:51 12/05/16 06:51 General appearance: Present: A&O X 3, no acute distress, answers questions appropriately - Head Head exam: Present: atraumatic, normocephalic - Eye Eye exam: Present: PERRL, conjuntiva pink, sclera anicteric Pupils: Present: PERRL - Neck Neck exam general surgery: Present: supple, trachea midline. Absent: lymphadenopathy - Respiratory Respiratory exam: Present: CTAB. Absent: accessory muscle use, rales, rhonchi, wheezes - Cardiovascular Cardiovascular exam: Present: RRR, +S1, +S2. Absent: diastolic murmur, gallop, rubs, systolic murmur - GI/Abdominal GI/Abdominal exam: Present: normal bowel sounds, soft, no peritoneal signs. Absent: distended, tenderness - Extremities Exam Extremities exam: Present: warm, radial pulses palpable and symetrical. Absent : calf tenderness, cyanotic, pedal edema Additional comments: Right ankle S/P surgery, well dressed - Neurological Exam Neurological exam: Present: CN II-XII intact, oriented X3, no focal deficits. Absent: pronater drift, facial droop, speech deficit - Skin Skin exam: Present: dry, intact Internal Medicine: Result - Labs CBC & Chem 7: 12/05/16 06:32 12/05/16 06:32 Labs: Short CBC 12/05/16 Range/Units 06:32 WBC 8.5 (4.3-11.1) K/mcL Hgb 9.6 L (11.5-15.4) g/dL Hct 30.0 L (35.3-44.9) % Plt Count 211 (140-400) K/mcL Neutrophils # 6.3 (1.6-8.9) K/mcL BMP 12/05/16 06:32 Sodium 142 Potassium 4.2 Chloride 104 Carbon Dioxide 26 BUN 22 H Creatinine 1.03 Glucose 139 H Calcium 9.5 - VTE Documentation of Mechanical Device: Intermittent pneumatic compression device Consult Discharge Plan - Plan Additional Instructions: NO WEIGHT BEARING TO RIGHT LEG KEEP DRESSING C/D/I FOLLOW UP WITH PRIMARY DOC IN 7-10 DAYS KEEP ALL APPOINTMENTS TAKE ALL MEDS PRESCRIBED Referrals: Ayden Camarillo DPM [Partnered Physician] - 12/08/16 8:30 am Moy Eid DO [Primary Care Provider] - 12/07/16 10:00 am Prescriptions: Ferrous Sulfate 325 mg PO DAILY #30 tablet
[2016-12-05] MEDS: Insulin LISPRO 300 UNITS/3 ML VIAL SQ SCH ×3 (11:24→17:47)
--- NOTE | 2016-12-05 20:30 | Podiatry Progress Note ---
Date of Encounter: 12/05/16 Time of Encounter: 20:27 - Assessment and Plan (1) Charcot ankle Current Visit: Yes Status: Acute Patient will remain nonweightbearing. electronic equipment trades worker will work with patient to determine placement which has been difficult due to the patient's inability to afford a care facility and inability to return home without significant assistance. At this time the patient's insurance company will not cover a care facility which is significantly impacting the patient's discharge planning and an adverse way and somewhat compromising optimal patient care because of the patient's inability to afford to self-pay for a care facility.. Patient will keep the dressings intact. Patient will follow up with me one week after discharge. We will change dressing prior to the patient's discharge. Qualifiers: Laterality: right Qualified Code(s): M14.671 - Charcot's joint, right ankle and foot Subjective Principal diagnosis: Charcot ankle Interval history: Patient relates that she is feeling better today. Patient denies any new complaints. Objective - Vital Signs Vital Signs: Vital Signs Temp Pulse Resp BP Pulse Ox 12/05/16 17:34 97.6 F 67 16 130/73 98 12/05/16 11:50 97.6 F 62 18 145/82 97 12/05/16 06:51 97.9 F 65 16 131/84 96 12/05/16 03:21 98.3 F 65 16 148/81 96 12/04/16 23:26 98.3 F 67 16 130/75 95 Intake and Output 12/05/16 12/05/16 12/05/16 07:59 15:59 23:59 Intake Total 0 / 0 365 / 365 Output Total 0 / 0 Balance 0 / 0 365 / 365 0 / 0 Intake: Oral 0 / 0 365 / 365 Output: Urine 0 / 0 Other: Meal Lunch Dinner Percent of Meal Consumed 100% 0% Stool Size Moderate Stool Consistency soft formed Stool Color Brown # Voids 1 # Bowel Movements 1 Weight 97.069 kg Blood Glucose* 161 149 162 Patient Weight 12/05/16 23:59 Weight 97.069 kg - Exam Exam: The splint is still intact to the right lower extremity. Capillary fill time intact to the digits. Range of motion noted to the digits. No pain with manual calf compression. - Lab Result Diagrams: 12/05/16 06:32 12/05/16 06:32 Labs: Abnormal lab results RBC 3.20 M/mcL (3.82-4.97) L 12/05/16 06:32 Hgb 9.6 g/dL (11.5-15.4) L 12/05/16 06:32 Hct 30.0 % (35.3-44.9) L 12/05/16 06:32 Platelet Estimate Slight Decrease (Normal) L 11/29/16 05:19 BUN 22 mg/dL (7-20) H 12/05/16 06:32 Est GFR (Non-Af Amer) 55 (> 60) L 12/05/16 06:32 Glucose 139 mg/dL (70-99) H 12/05/16 06:32 POC Glucose 162 (58-89) H 12/05/16 17:29 Albumin 2.9 g/dL (3.5-5.0) L 11/29/16 05:19 Globulin 3.6 g/dL (2.4-3.5) H 11/29/16 05:19 Albumin/Globulin Ratio 0.8 (1.1-2.2) L 11/29/16 05:19 - VTE Documentation of Mechanical Device: Intermittent pneumatic compression device Consult Discharge Plan - Plan Additional Instructions: NO WEIGHT BEARING TO RIGHT LEG KEEP DRESSING C/D/I FOLLOW UP WITH PRIMARY DOC IN 7-10 DAYS KEEP ALL APPOINTMENTS TAKE ALL MEDS PRESCRIBED Referrals: Ayden Camarillo DPM [Partnered Physician] - 12/08/16 8:30 am Moy Eid DO [Primary Care Provider] - 12/07/16 10:00 am Prescriptions: Ferrous Sulfate 325 mg PO DAILY #30 tablet
--- NOTE | 2016-12-05 20:33 | Podiatry Progress Note ---
Date of Encounter: 12/04/16 Time of Encounter: 12:31 - Assessment and Plan (1) Charcot ankle Current Visit: Yes Status: Acute Patient will remain nonweightbearing. workers compensation legal secretary will work with patient to determine placement which has been difficult due to the patient's inability to afford a care facility and inability to return home without significant assistance. At this time the patient's insurance company will not cover a care facility which is significantly impacting the patient's discharge planning and an adverse way and somewhat compromising optimal patient care because of the patient's inability to afford to self-pay for a care facility.. Patient will keep the dressings intact. Patient will follow up with me one week after discharge. We will change dressing prior to the patient's discharge. Qualifiers: Laterality: right Qualified Code(s): M14.671 - Charcot's joint, right ankle and foot Subjective Principal diagnosis: Charcot ankle Interval history: Patient relates that she is feeling better today. Patient denies any new complaints. Objective - Vital Signs Vital Signs: Vital Signs Temp Pulse Resp BP Pulse Ox 12/05/16 20:29 98.2 F 70 16 149/89 97 12/05/16 17:34 97.6 F 67 16 130/73 98 12/05/16 11:50 97.6 F 62 18 145/82 97 12/05/16 06:51 97.9 F 65 16 131/84 96 12/05/16 03:21 98.3 F 65 16 148/81 96 12/04/16 23:26 98.3 F 67 16 130/75 95 Intake and Output 12/05/16 12/05/16 12/05/16 07:59 15:59 23:59 Intake Total 0 / 0 365 / 365 Output Total 0 / 0 Balance 0 / 0 365 / 365 0 / 0 Intake: Oral 0 / 0 365 / 365 Output: Urine 0 / 0 Other: Meal Lunch Dinner Percent of Meal Consumed 100% 0% Stool Size Moderate Stool Consistency soft formed Stool Color Brown # Voids 1 # Bowel Movements 1 Weight 97.069 kg Blood Glucose* 161 149 148 Patient Weight 12/05/16 23:59 Weight 97.069 kg - Exam Exam: Splint is intact. No strikethrough. Patient is able to move toes. Capillary fill time intact to the digits. - Lab Result Diagrams: 12/05/16 06:32 12/05/16 06:32 Labs: Abnormal lab results RBC 3.20 M/mcL (3.82-4.97) L 12/05/16 06:32 Hgb 9.6 g/dL (11.5-15.4) L 12/05/16 06:32 Hct 30.0 % (35.3-44.9) L 12/05/16 06:32 Platelet Estimate Slight Decrease (Normal) L 11/29/16 05:19 BUN 22 mg/dL (7-20) H 12/05/16 06:32 Est GFR (Non-Af Amer) 55 (> 60) L 12/05/16 06:32 Glucose 139 mg/dL (70-99) H 12/05/16 06:32 POC Glucose 162 (58-89) H 12/05/16 17:29 Albumin 2.9 g/dL (3.5-5.0) L 11/29/16 05:19 Globulin 3.6 g/dL (2.4-3.5) H 11/29/16 05:19 Albumin/Globulin Ratio 0.8 (1.1-2.2) L 11/29/16 05:19 - VTE Documentation of Mechanical Device: Intermittent pneumatic compression device Consult Discharge Plan - Plan Additional Instructions: NO WEIGHT BEARING TO RIGHT LEG KEEP DRESSING C/D/I FOLLOW UP WITH PRIMARY DOC IN 7-10 DAYS KEEP ALL APPOINTMENTS TAKE ALL MEDS PRESCRIBED Referrals: Ayden Camarillo DPM [Partnered Physician] - 12/08/16 8:30 am Moy Eid DO [Primary Care Provider] - 12/07/16 10:00 am Prescriptions: Ferrous Sulfate 325 mg PO DAILY #30 tablet
[2016-12-05] MEDS: Insulin DETEMIR 100 UNIT/ML X5UNITS SQ SCH (20:35)
[2016-12-05] MEDS ORDERED: Insulin LISPRO 300 UNITS/3 ML VIAL SQ SCH (21:00)
[2016-12-06 03:13] LABS: Basophils % 0.4 %; Eosinophils # 0.1 K/mcL (0.0-0.6); Eosinophils % 1.6 %; Hematocrit 28.3 % (35.3-44.9); Hemoglobin 9.4 g/dL (11.5-15.4); Immature Granulocytes % 0.4 % (0-4); Lymphocytes # 2.2 K/mcL (0.6-4.6); Lymphocytes % 27.9 %; Mean Corpuscular HGB Conc 33.2 g/dL (31.6-35.5); Mean Corpuscular Hemoglobin 30.6 pg (28.0-33.3); Mean Corpuscular Volume 92.2 fL (83.0-100.0); Mean Platelet Volume 9.7 fL (9.4-12.4); Monocytes # 0.6 K/mcL (0.0-1.3); Monocytes % 7.5 %; Neutrophils # 4.9 K/mcL (1.6-8.9); Platelet Count 219 K/mcL (140-400); Red Blood Count 3.07 M/mcL (3.82-4.97); Red Cell Distribution Width 12.6 % (11.5-14.5); Segmented Neutrophils % 62.2 %
[2016-12-06 03:27] LABS: BUN/Creatinine Ratio 22 (6-26); Blood Urea Nitrogen 21 mg/dL (7-20); Calcium 9.7 mg/dL (8.6-10.8); Carbon Dioxide 26 mEq/L (19-29); Chloride 105 mEq/L (98-109); Glucose 71 mg/dL (70-99); Osmolality,Calculated 295 (280-300); Potassium 3.9 mEq/L (3.5-4.5); Sodium 142 mEq/L (136-145); eGFR For African Americans > 60 (> 60); eGFR For Non-African Americans 59 (> 60)
[2016-12-06] MEDS: *HR* Heparin 5,000 UNIT/ML VIAL SQ SCH (05:32)
[2016-12-06] MEDS: hydroCHLOROthiazide 25 MG TABLET PO SCH (08:20)
[2016-12-06] MEDS: Famotidine 20 MG TABLET PO SCH (08:20)
[2016-12-06] MEDS: *HR* HYDROcodone/Acet 10/325 mg TABLET PO PRN ×2 (08:23→15:37)
[2016-12-06] MEDS: Insulin LISPRO 300 UNITS/3 ML VIAL SQ SCH ×2 (08:24→11:20)
[2016-12-06] MEDS: Valsartan 160 MG TABLET PO SCH (08:26)
[2016-12-06 10:54] VITALS: BP 132/74
--- NOTE | 2016-12-06 12:43 | Discharge Summary ---
Date of Encounter: 12/06/16 Time of Encounter: 12:00 - Discharge Diagnosis (1) Charcot ankle Priority: Primary Status: Acute Qualifiers: Laterality: right Qualified Code(s): M14.671 - Charcot's joint, right ankle and foot (2) Hyperkalemia Priority: Secondary Status: Acute (3) Asthma Priority: Secondary Status: Chronic Qualifiers: Asthma severity: unspecified severity Asthma complication type: uncomplicated Qualified Code(s): J45.909 - Unspecified asthma, uncomplicated (4) Hypertension Priority: Secondary Status: Chronic Qualifiers: Hypertension type: essential hypertension Qualified Code(s): I10 - Essential (primary) hypertension (5) Type 2 diabetes mellitus Priority: Secondary Status: Chronic Qualifiers: Diabetes mellitus complication status: without complication Diabetes mellitus half-way insulin use: with half-way use Qualified Code(s): E11.9 - Type 2 diabetes mellitus without complications; 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 (6) DVT prophylaxis Priority: Secondary Status: Acute (7) Nausea Priority: Secondary Status: Acute (8) Anemia due to blood loss, acute Priority: Secondary Status: Acute - Discharge Medications Prescriptions: Ferrous Sulfate 325 mg PO DAILY #30 tablet Omeprazole [PriLOSEC] 20 mg PO DAILY@0630 #30 capsule.dr Home Medications: Acetaminophen [Tylenol] 500 mg PO Q6HR PRN 11/26/16 [History] Albuterol Sulfate [Proair Hfa] 2 puff IH Q4H PRN 11/26/16 [History] Ibuprofen [Advil] 200 mg PO Q6H PRN 11/26/16 [History] Insulin Glargine,Hum.rec.anlog [Lantus Solostar] 25 unit SQ QAM 11/26/16 [ History] Insulin LISPRO [Humalog Kwikpen U-100] 15 unit SQ TIDWM 11/26/16 [History] Valsartan/Hydrochlorothiazide [Diovan Hct 160-25 mg Tablet] 1 tab PO DAILY 11/26 [History] Insulin Glargine,Hum.rec.anlog [Lantus Solostar] 20 unit SQ HS 11/28/16 [History ] Naproxen Sod/Diphenhydram HCl [Aleve Pm Caplet] 1 tab PO HS 11/28/16 [History] Ferrous Sulfate 325 mg PO DAILY #30 tablet 12/03/16 [Rx] Omeprazole [PriLOSEC] 20 mg PO DAILY@0630 #30 capsule. 12/06/16 [Rx] Allergies/Adverse Reactions: Allergies acetaminophen [From Percocet] Allergy (Verified 11/11/16 15:50) Hives Oxycodone [From Percocet] Allergy (Verified 11/11/16 15:50) Hives metformin [From Glucophage] Adverse Reaction (Verified 11/11/16 15:50) Diarrhea Date of admission: 11/27/16 23:00 Primary care physician: Dale Abrams Consults: 11/26/16 13:01 Consult to Hospitalist [CONS] Routine Consulting Provider: Hospitalist Hasmukh Reason for Consult: medical management Call Completed: No Consult to Occupational Therapy [CONS] Routine Comment: Evaluate, develop and implement POC Consult to Physical Therapy [CONS] Routine Comment: Evaluate, develop and implement POC Consult to Log Grader [CONS] Routine Reason for SW Consult: discharge planning Discharging clinician: Andressa Rader Anticipated date of discharge: 12/06/16 - Patient Status Disposition: Home Health Service Condition: Good - Discharge Instructions Follow Up With: Ayden Gonzalez DPM [Partnered Physician] - 12/08/16 8:30 am Moy Eid DO [Primary Care Provider] - 12/07/16 10:00 am Additional Instructions: NO WEIGHT BEARING TO RIGHT LEG KEEP DRESSING C/D/I FOLLOW UP WITH PRIMARY DOC IN 7-10 DAYS KEEP ALL APPOINTMENTS TAKE ALL MEDS PRESCRIBED - Diet and Activity Activity: as per physical therapy (Please follow podiatry instruction) Diet: diabetic diet Interval History: Ms. Talamantes is a 61 year old female who has diabetes and a charcot ankle. Patient was admitted for pain control and medical management postoperatively. Patient is in need of admittance to a nursing facility. Hospital course: Ms. Talamantes is a 61 year old female was admitted charcot ankle s/p surgery. Patient is placed on pain medication, physical therapy. Patient is planned to discharge to rehabilitation center but not approved by insurance. Discussed with the podiatry Dr. gonzalez, patient will be discharged home with home health and home physical therapy. Patient was seen and examined. She is awake alert, oriented 3. No nausea, no vomiting. Vitals are stable. Minimal pain. Blood pressure and blood sugar level are stable. Patient with discharge home with home health and home physical therapy. - Time Spent with Patient Total time spent providing and/or coordinating discharge services: 40 minutes Greater than 30 minutes - Constitutional Vitals: Temp Pulse Resp BP Pulse Ox 97.9 F 60 18 132/74 97 12/06/16 10:53 12/06/16 10:53 12/06/16 10:53 12/06/16 10:53 12/06/16 10:53 General appearance: Present: A&O X 3, no acute distress, answers questions appropriately - Head Head exam: Present: atraumatic, normocephalic - Eye Eye exam: Present: PERRL, conjuntiva pink, sclera anicteric Pupils: Present: PERRL - Neck Neck exam general surgery: Present: supple, trachea midline. Absent: lymphadenopathy - Respiratory Respiratory exam: Present: CTAB. Absent: accessory muscle use, rales, rhonchi, wheezes - Cardiovascular Cardiovascular exam: Present: RRR, +S1, +S2. Absent: diastolic murmur, gallop, rubs, systolic murmur - GI/Abdominal GI/Abdominal exam: Present: normal bowel sounds, soft, no peritoneal signs. Absent: distended, tenderness - Extremities Exam Extremities exam: Present: warm, radial pulses palpable and symetrical. Absent : calf tenderness, cyanotic, pedal edema Additional comments: Right ankle S/P surgery, well-dressed. - Neurological Exam Neurological exam: Present: CN II-XII intact, oriented X3, no focal deficits. Absent: pronater drift, facial droop, speech deficit - Skin Skin exam: Present: dry, intact - VTE Documentation of Mechanical Device: Intermittent pneumatic compression device
--- NOTE | 2016-12-06 12:51 | Physician Discharge Referral ---
Home Health/Hosp Referral Info Transfer to: Home Health Provider in Charge Post Discharge: PCP - Diagnosis (1) Charcot ankle Status: Acute (2) Hyperkalemia Status: Acute (3) Asthma Status: Chronic (4) Hypertension Status: Chronic (5) Type 2 diabetes mellitus Status: Chronic (6) DVT prophylaxis Status: Acute (7) Nausea Status: Acute (8) Anemia due to blood loss, acute Status: Acute - Respiratory Orders Smoking Cessation: Smoking cessation has been advised. For more information, call the [place] [employer] Quit Line at 8-932-JLUY-NOW. - Diet/Nutrition Diet/Nutrition Orders: No Concentrated Sweets (Diabetes diet) - Services Needed Following services are medically necessary services: Nursing, Home Health Aide, Physical Therapy, Occupational Therapy - Transfer Medications Prescriptions: Ferrous Sulfate 325 mg PO DAILY #30 tablet Omeprazole [PriLOSEC] 20 mg PO DAILY@0630 #30 capsule. Adrian Medications: Acetaminophen [Tylenol] 500 mg PO Q6HR PRN 11/26/16 [History] Albuterol Sulfate [Proair Hfa] 2 puff IH Q4H PRN 11/26/16 [History] Ibuprofen [Advil] 200 mg PO Q6H PRN 11/26/16 [History] Insulin Glargine,Hum.rec.anlog [Lantus Solostar] 25 unit SQ QAM 11/26/16 [ History] Insulin LISPRO [Humalog Kwikpen U-100] 15 unit SQ TIDWM 11/26/16 [History] Valsartan/Hydrochlorothiazide [Diovan Hct 160-25 mg Tablet] 1 tab PO DAILY 11/26 [History] Insulin Glargine,Hum.rec.anlog [Lantus Solostar] 20 unit SQ HS 11/28/16 [History ] Naproxen Sod/Diphenhydram HCl [Aleve Pm Caplet] 1 tab PO HS 11/28/16 [History] Ferrous Sulfate 325 mg PO DAILY #30 tablet 12/03/16 [Rx] Omeprazole [PriLOSEC] 20 mg PO DAILY@0630 #30 capsule. 12/06/16 [Rx] Allergies/Adverse Reactions: Allergies acetaminophen [From Percocet] Allergy (Verified 11/11/16 15:50) Hives Oxycodone [From Percocet] Allergy (Verified 11/11/16 15:50) Hives metformin [From Glucophage] Adverse Reaction (Verified 11/11/16 15:50) Diarrhea Certification: Further, I certify that my clinical findings support that this patient is homebound (i.e. absences from home require considerable and taxing effort and are for medical reasons or mu-ism services or infrequently or short duration when for other reasons) because: Homebound Reason: Patient requires assistance of a person or device to safely leave home Attestation: My signature below is to certify that this patient is under my care and that I, or nurse practitioner, or a physician's patient services assistant working with me, has a face-to -face encounter with this patient.
== END 2016-12-06 17:25 | disposition home health service (06) ==
LOC: 3NENU 06:08 → SAMDAY 06:08 → 3NENU 12:59 → 3ANU 11-29 12:47
PROVIDERS: ADMIT Podiatrist Foot & Ankle Surgery; ATTEND Podiatrist Foot & Ankle Surgery

== ENCOUNTER 2021-09-01 16:48 | Inpatient (IN) ==
[2021-09-01 18:30] LABS: BUN/Creatinine Ratio 19 (6-26); Basophils % 0.1 %; Blood Urea Nitrogen 55 mg/dL (8-23); Calcium 9.7 mg/dL (8.6-10.3); Carbon Dioxide 17 mEq/L (23-29); Chloride 111 mEq/L (98-107); Eosinophils # 0.3 K/mcL (0.0-0.6); Eosinophils % 4.8 %; Glucose 111 mg/dL (70-105); Hematocrit 30.7 % (35.3-44.9); Hemoglobin 9.6 g/dL (11.5-15.4); Immature Granulocytes % 1.4 % (0-4); Lymphocytes # 0.7 K/mcL (0.6-4.6); Mean Corpuscular HGB Conc 31.3 g/dL (31.6-35.5); Mean Corpuscular Hemoglobin 30.7 pg (28.0-33.3); Mean Corpuscular Volume 98.1 fL (83.0-100.0); Mean Platelet Volume 10.8 fL (9.4-12.4); Monocytes # 0.9 K/mcL (0.0-1.3); Neutrophils # 5.1 K/mcL (1.6-8.9); Osmolality,Calculated 296 (280-300); Platelet Count 155 K/mcL (140-400); Potassium 6.9 mEq/L (3.5-5.1); Red Blood Count 3.13 M/mcL (3.82-4.97); Red Cell Distribution Width 14.1 % (11.5-14.5); Segmented Neutrophils % 71.7 %; Sodium 135 mEq/L (136-145); Troponin I < 0.03 ng/mL (< 0.04); White Blood Count 7.1 K/mcL (4.3-11.1); eGFR For African Americans 19 (> 60); eGFR For Non-African Americans 16 (> 60)
[2021-09-01] MEDS ORDERED: Albuterol 2.5 MG/3 ML NEBULIZER IH ONE (18:36)
[2021-09-01] MEDS ORDERED: *HR* Dextrose 50 % in Water (Vial) 50 ML VIAL IVP ONE (18:36)
[2021-09-01] MEDS ORDERED: Insulin Human Regular 5 UNIT in 0.9 % Sodium Chloride 10 ML IV ONE (18:36)
[2021-09-01] MEDS: Calcium Gluconate 1gm/50mL 1 GM/50 ML BAG IVPB PRN ×2 (19:08→20:23)
[2021-09-01] MEDS ORDERED: 0.9 % Sodium Chloride 500 ML IVC ONE (19:15)
[2021-09-01] MEDS ORDERED: Naloxone 0.4 MG/ML INJ IVP PRN (19:27)
[2021-09-01] MEDS ORDERED: Ondansetron 4 MG/2 ML VIAL IVP PRN (19:27)
[2021-09-01] MEDS ORDERED: 0.9 % Sodium Chloride 1,000 ML IVC SCH (19:30)
[2021-09-01] MEDS ORDERED: SODIUM ZIRCONIUM CYCLOSILICATE 5 GM POWD.PACK PO SCH (20:30)
[2021-09-01] MEDS ORDERED: Dextrose Gel 15 GM/37.5 ML TUBE PO PRN ×2 (20:46)
[2021-09-01] MEDS ORDERED: D5% in Water 1,000 ML IVC PRN (20:46)
[2021-09-01] MEDS ORDERED: *HR* Dextrose 50 % in Water (Syg) 50 ML SYRINGE IVP PRN (20:46)
[2021-09-01] MEDS ORDERED: Melatonin 3 MG TABLET PO PRN (21:00)
[2021-09-01] MEDS: SODIUM ZIRCONIUM CYCLOSILICATE 5 GM POWD.PACK PO SCH (22:29)
[2021-09-01] MEDS: Insulin LISPRO 300 UNITS/3 ML VIAL SUBQ SCH (22:48)
[2021-09-01 23:09] LABS: Calcium 9.5 mg/dL (8.6-10.3); Potassium 5.8 mEq/L (3.5-5.1)
[2021-09-02] MEDS ORDERED: Insulin DETEMIR 100 UNIT/ML X5UNITS SUBQ ONE (00:45)
[2021-09-02] MEDS: Gabapentin 300 MG CAPSULE PO SCH ×2 (01:25→08:55)
[2021-09-02 01:58] LABS: Hematocrit 25.5 % (35.3-44.9); Mean Corpuscular HGB Conc 31.4 g/dL (31.6-35.5); Mean Corpuscular Hemoglobin 30.4 pg (28.0-33.3); Mean Platelet Volume 10.6 fL (9.4-12.4); Platelet Count 128 K/mcL (140-400); Red Blood Count 2.63 M/mcL (3.82-4.97); Red Cell Distribution Width 14.1 % (11.5-14.5); White Blood Count 6.4 K/mcL (4.3-11.1)
[2021-09-02 02:20] LABS: Calcium 9.2 mg/dL (8.6-10.3)
[2021-09-02] MEDS ORDERED: Insulin Human Regular 10 UNIT in 0.9 % Sodium Chloride 10 ML IV ONE (03:30)
[2021-09-02] MEDS ORDERED: *HR* Dextrose 50 % in Water (Syg) 50 ML SYRINGE IVP ONE (03:30)
[2021-09-02 05:55] LABS: Calcium 9.2 mg/dL (8.6-10.3); Potassium 5.7 mEq/L (3.5-5.1)
[2021-09-02] MEDS: SODIUM ZIRCONIUM CYCLOSILICATE 5 GM POWD.PACK PO SCH ×2 (08:55→16:03)
[2021-09-02] MEDS: Acetaminophen 325 MG TABLET PO PRN (08:55)
[2021-09-02] MEDS ORDERED: Gabapentin 300 MG CAPSULE PO SCH (09:00)
[2021-09-02] MEDS: Cyanocobalamin (B-12) 1,000 MCG TABLET PO SCH (09:10)
[2021-09-02] MEDS: Insulin LISPRO 300 UNITS/3 ML VIAL SUBQ SCH ×3 (09:10→16:06)
[2021-09-02] MEDS: amLODIPine 5 MG TABLET PO SCH (09:10)
[2021-09-02] MEDS: Metoprolol XL (24 HR) Succ 25 MG TAB.ER.24H PO SCH (09:10)
[2021-09-02] MEDS: Sodium Bicarbonate 75 MEQ in 0.45 % Sodium Chloride 1,000 ML IVC SCH ×2 (09:29→20:22)
[2021-09-02] MEDS: PrednisoLONE Acetate 1% Opth 5 ML BOTTLE RIGHT EYE SCH ×2 (09:30→20:24)
[2021-09-02 14:00] LABS: Phosphorous 2.8 mg/dL (2.7-4.5)
[2021-09-02] MEDS: *HR* Heparin 5,000 UNIT/ML VIAL SQ SCH ×2 (14:01→20:23)
[2021-09-02 18:45] LABS: Bilirubin,Urine Negative (Negative); Blood,Urine Negative (Negative); Clarity,Urine Clear (Clear); Color,Urine Light-Yellow (Yellow); Glucose,Urine (UA) Normal (Normal); Ketones,Urine Negative (Negative); Leukocyte Esterase,Urine Moderate (Negative); Mucus,Urine Few per lpf (None-Few); Nitrite,Urine Negative (Negative); PH,Urine 5.5 pH Units (5.0-8.0); Protein,Urine Trace mg/dL (Neg-Trace); RBC,Urine 0-3 per hpf (0-3); Specific Gravity,Urine 1.011 (1.010-1.025); Squamous Epithelial Cell,Urine Few per hpf (None-Few); Urobilinogen,Urine Normal (Normal)
[2021-09-02] MEDS: Insulin DETEMIR 100 UNIT/ML X5UNITS SUBQ SCH (20:24)
[2021-09-03 00:58] LABS: Basophils % 0.1 %; Eosinophils # 0.3 K/mcL (0.0-0.6); Eosinophils % 4.1 %; Hemoglobin 8.2 g/dL (11.5-15.4); Immature Granulocytes % 1.3 % (0-4); Lymphocytes # 0.9 K/mcL (0.6-4.6); Lymphocytes % 11.1 %; Mean Corpuscular HGB Conc 32.8 g/dL (31.6-35.5); Mean Corpuscular Hemoglobin 31.1 pg (28.0-33.3); Mean Corpuscular Volume 94.7 fL (83.0-100.0); Mean Platelet Volume 10.5 fL (9.4-12.4); Monocytes # 0.9 K/mcL (0.0-1.3); Monocytes % 11.4 %; Neutrophils # 5.7 K/mcL (1.6-8.9); Platelet Count 134 K/mcL (140-400); Red Blood Count 2.64 M/mcL (3.82-4.97); Red Cell Distribution Width 14.3 % (11.5-14.5)
[2021-09-03 01:19] LABS: Calcium 8.6 mg/dL (8.6-10.3); Potassium 5.5 mEq/L (3.5-5.1)
[2021-09-03] MEDS: *HR* Heparin 5,000 UNIT/ML VIAL SQ SCH ×3 (05:32→20:18)
[2021-09-03 08:51] LABS: INR 1.2; Prothrombin Time 13.7 Seconds (9.4-12.1)
[2021-09-03] MEDS: Insulin LISPRO 300 UNITS/3 ML VIAL SUBQ SCH ×3 (10:02→17:56)
[2021-09-03] MEDS: Cyanocobalamin (B-12) 1,000 MCG TABLET PO SCH (10:09)
[2021-09-03] MEDS: PrednisoLONE Acetate 1% Opth 5 ML BOTTLE RIGHT EYE SCH ×2 (10:14→20:31)
[2021-09-03] MEDS ORDERED: 0.9 % Sodium Chloride 500 ML ONE (10:37)
[2021-09-03] MEDS ORDERED: *HR* Midazolam HCl 2 MG/2 ML VIAL IVP ONE (10:55)
[2021-09-03] MEDS ORDERED: *HR* FentaNYL (PF) 100 MCG/2 ML VIAL IVP ONE (10:55)
[2021-09-03] MEDS: amLODIPine 5 MG TABLET PO SCH (12:30)
[2021-09-03] MEDS: Metoprolol XL (24 HR) Succ 25 MG TAB.ER.24H PO SCH (12:30)
[2021-09-03] MEDS: Sodium Bicarbonate 75 MEQ in 0.45 % Sodium Chloride 1,000 ML IVC SCH ×2 (12:38→20:19)
[2021-09-03] MEDS: SODIUM ZIRCONIUM CYCLOSILICATE 5 GM POWD.PACK PO SCH (18:01)
[2021-09-03] MEDS: Insulin DETEMIR 100 UNIT/ML X5UNITS SUBQ SCH (20:18)
[2021-09-04 05:19] LABS: Eosinophils # 0.4 K/mcL (0.0-0.6); Eosinophils % 5.7 %; Hematocrit 21.6 % (35.3-44.9); Hemoglobin 7.1 g/dL (11.5-15.4); Immature Granulocytes % 1.2 % (0-4); Lymphocytes # 0.9 K/mcL (0.6-4.6); Lymphocytes % 13.3 %; Mean Corpuscular HGB Conc 32.9 g/dL (31.6-35.5); Mean Corpuscular Hemoglobin 31.3 pg (28.0-33.3); Mean Corpuscular Volume 95.2 fL (83.0-100.0); Mean Platelet Volume 10.4 fL (9.4-12.4); Monocytes # 0.7 K/mcL (0.0-1.3); Monocytes % 11.3 %; Neutrophils # 4.4 K/mcL (1.6-8.9); Platelet Count 127 K/mcL (140-400); Red Blood Count 2.27 M/mcL (3.82-4.97); Red Cell Distribution Width 14.6 % (11.5-14.5); Segmented Neutrophils % 68.5 %; White Blood Count 6.5 K/mcL (4.3-11.1)
[2021-09-04 05:47] LABS: Calcium 8.4 mg/dL (8.6-10.3); Potassium 3.9 mEq/L (3.5-5.1)
[2021-09-04] MEDS: *HR* Heparin 5,000 UNIT/ML VIAL SQ SCH (05:57)
[2021-09-04] MEDS: Sodium Bicarbonate 75 MEQ in 0.45 % Sodium Chloride 1,000 ML IVC SCH (06:01)
[2021-09-04] MEDS ORDERED: *HR* Dextrose 50 % in Water (Syg) 50 ML SYRINGE IVP ONE (07:19)
[2021-09-04] MEDS ORDERED: Ergocalciferol (VIT D2) 50,000 UNIT (1.25MG) CAP PO SCH (09:00)
[2021-09-04] MEDS: Insulin LISPRO 300 UNITS/3 ML VIAL SUBQ SCH ×3 (10:37→18:52)
[2021-09-04] MEDS: Metoprolol XL (24 HR) Succ 25 MG TAB.ER.24H PO SCH (10:46)
[2021-09-04] MEDS: amLODIPine 5 MG TABLET PO SCH (10:46)
[2021-09-04] MEDS: SODIUM ZIRCONIUM CYCLOSILICATE 5 GM POWD.PACK PO SCH (10:47)
[2021-09-04] MEDS: PrednisoLONE Acetate 1% Opth 5 ML BOTTLE RIGHT EYE SCH ×2 (10:48→19:38)
[2021-09-04] MEDS: Cyanocobalamin (B-12) 1,000 MCG TABLET PO SCH (10:48)
[2021-09-04 12:48] LABS: Hematocrit 23.1 % (35.3-44.9); Hemoglobin 7.5 g/dL (11.5-15.4)
[2021-09-04] MEDS: Gabapentin 300 MG CAPSULE PO SCH ×2 (16:20→19:26)
[2021-09-04] MEDS: Insulin DETEMIR 100 UNIT/ML X5UNITS SUBQ SCH (19:37)
[2021-09-05 01:57] LABS: Basophils % 0.1 %; Eosinophils # 0.5 K/mcL (0.0-0.6); Eosinophils % 5.6 %; Hematocrit 24.6 % (35.3-44.9); Hemoglobin 7.7 g/dL (11.5-15.4); Immature Granulocytes % 1.1 % (0-4); Lymphocytes # 0.9 K/mcL (0.6-4.6); Lymphocytes % 10.8 %; Mean Corpuscular HGB Conc 31.3 g/dL (31.6-35.5); Mean Corpuscular Hemoglobin 30.2 pg (28.0-33.3); Mean Corpuscular Volume 96.5 fL (83.0-100.0); Mean Platelet Volume 10.4 fL (9.4-12.4); Monocytes # 0.7 K/mcL (0.0-1.3); Monocytes % 8.9 %; Platelet Count 139 K/mcL (140-400); Red Blood Count 2.55 M/mcL (3.82-4.97); Red Cell Distribution Width 14.6 % (11.5-14.5); Segmented Neutrophils % 73.5 %; White Blood Count 8.2 K/mcL (4.3-11.1)
[2021-09-05 02:10] LABS: Calcium 8.2 mg/dL (8.6-10.3)
[2021-09-05] MEDS: Acetaminophen 325 MG TABLET PO PRN ×2 (03:41→17:40)
[2021-09-05 05:30] LABS: Bilirubin,Urine Negative (Negative); Blood,Urine Trace (Negative); Clarity,Urine Clear (Clear); Color,Urine Yellow (Yellow); Glucose,Urine (UA) Normal (Normal); Ketones,Urine Trace mg/dL (Negative); Leukocyte Esterase,Urine Small (Negative); Nitrite,Urine Negative (Negative); Protein,Urine 70 mg/dL (Neg-Trace); RBC,Urine 0-3 per hpf (0-3); Specific Gravity,Urine 1.013 (1.010-1.025); Squamous Epithelial Cell,Urine Few per hpf (None-Few); Transitional Epi Cells,Urine Few per hpf (None-Few)
[2021-09-05] MEDS: Insulin LISPRO 300 UNITS/3 ML VIAL SUBQ SCH ×3 (08:27→17:39)
[2021-09-05] MEDS: amLODIPine 5 MG TABLET PO SCH (10:47)
[2021-09-05] MEDS: Metoprolol XL (24 HR) Succ 25 MG TAB.ER.24H PO SCH (10:47)
[2021-09-05] MEDS: Gabapentin 300 MG CAPSULE PO SCH ×3 (10:47→22:46)
[2021-09-05] MEDS: PrednisoLONE Acetate 1% Opth 5 ML BOTTLE RIGHT EYE SCH ×2 (10:48→22:48)
[2021-09-05] MEDS: Cyanocobalamin (B-12) 1,000 MCG TABLET PO SCH (10:48)
[2021-09-05] MEDS: SODIUM ZIRCONIUM CYCLOSILICATE 5 GM POWD.PACK PO SCH (10:48)
[2021-09-05] MEDS: Albuterol 2.5 MG/3 ML NEBULIZER IH PRN (13:27)
[2021-09-05] MEDS ORDERED: Furosemide 40 MG/4 ML VIAL IVP ONE ×2 (14:39→17:47)
[2021-09-05] MEDS: *HR* Heparin 5,000 UNIT/ML VIAL SQ SCH ×2 (15:10→22:46)
[2021-09-05] MEDS: Sodium Bicarbonate 75 MEQ in 0.45 % Sodium Chloride 1,000 ML IVC SCH (17:49)
[2021-09-05] MEDS ORDERED: Vancomycin 1,500 MG/265 ML IV.SOLN IVPB ONE (20:00)
[2021-09-05 20:23] LABS: Adenovirus Not Detected (Not Detect); Bordetella Pertussis Not Detected (Not Detect); Chlamydophila pneumoniae Not Detected (Not Detect); Coronavirus 229E Not Detected (Not Detect); Coronavirus HKU1 Not Detected (Not Detect); Coronavirus NL63 Not Detected (Not Detect); Coronavirus OC43 Not Detected (Not Detect); Human Metapneumovirus Not Detected (Not Detect); Human Rhinovirus/Enterovirus Not Detected (Not Detect); Influenza A Subtype 2009 H1 Not Detected (Not Detect); Influenza B Not Detected (Not Detect); Mycoplasma pneumoniae Not Detected (Not Detect); Parainfluenza Virus 1 Not Detected (Not Detect); Parainfluenza Virus 2 Not Detected (Not Detect); Parainfluenza Virus 3 Not Detected (Not Detect); Parainfluenza Virus 4 Not Detected (Not Detect); Respiratory Syncytial Virus Not Detected (Not Detect); SARS-CoV-2 Not Detected (Not Detect)
[2021-09-05] MEDS: Insulin DETEMIR 100 UNIT/ML X5UNITS SUBQ SCH (22:47)
[2021-09-06 02:43] LABS: Basophils % 0.1 %; Eosinophils # 0.4 K/mcL (0.0-0.6); Eosinophils % 3.7 %; Hematocrit 22.3 % (35.3-44.9); Immature Platelets 3.6 % (1.1-6.1); Lymphocytes % 10.2 %; Mean Corpuscular HGB Conc 31.4 g/dL (31.6-35.5); Mean Corpuscular Hemoglobin 30.7 pg (28.0-33.3); Mean Corpuscular Volume 97.8 fL (83.0-100.0); Mean Platelet Volume 10.6 fL (9.4-12.4); Monocytes # 0.6 K/mcL (0.0-1.3); Monocytes % 6.4 %; Neutrophils # 7.8 K/mcL (1.6-8.9); Platelet Count 127 K/mcL (140-400); Red Blood Count 2.28 M/mcL (3.82-4.97); Red Cell Distribution Width 14.4 % (11.5-14.5); Segmented Neutrophils % 78.6 %; White Blood Count 9.9 K/mcL (4.3-11.1)
[2021-09-06 03:10] LABS: Calcium 8.3 mg/dL (8.6-10.3); Potassium 3.4 mEq/L (3.5-5.1)
[2021-09-06] MEDS: *HR* Heparin 5,000 UNIT/ML VIAL SQ SCH ×3 (05:10→21:08)
[2021-09-06] MEDS: Cefepime HCl 2,000 MG in Water for inj. (sterile) 20 ML IVP SCH ×2 (05:10→16:50)
[2021-09-06] MEDS: Acetaminophen 325 MG TABLET PO PRN ×2 (06:56→16:48)
[2021-09-06] MEDS: Insulin LISPRO 300 UNITS/3 ML VIAL SUBQ SCH ×3 (07:58→16:36)
[2021-09-06] MEDS: SODIUM ZIRCONIUM CYCLOSILICATE 5 GM POWD.PACK PO SCH (10:51)
[2021-09-06] MEDS: Gabapentin 300 MG CAPSULE PO SCH ×3 (10:52→21:08)
[2021-09-06] MEDS: amLODIPine 5 MG TABLET PO SCH (10:52)
[2021-09-06] MEDS: Cyanocobalamin (B-12) 1,000 MCG TABLET PO SCH (10:52)
[2021-09-06] MEDS: Metoprolol XL (24 HR) Succ 25 MG TAB.ER.24H PO SCH (10:52)
[2021-09-06] MEDS: PrednisoLONE Acetate 1% Opth 5 ML BOTTLE RIGHT EYE SCH ×2 (10:58→21:09)
[2021-09-06] MEDS ORDERED: Vancomycin 1,500 MG/265 ML IV.SOLN IVPB ONE (11:00)
[2021-09-06 12:17] LABS: Hematocrit 25.7 % (35.3-44.9)
[2021-09-06] MEDS: Insulin DETEMIR 100 UNIT/ML X5UNITS SUBQ SCH (21:09)
[2021-09-07] MEDS: Albuterol 2.5 MG/3 ML NEBULIZER IH PRN (03:15)
[2021-09-07] MEDS: Cefepime HCl 2,000 MG in Water for inj. (sterile) 20 ML IVP SCH ×2 (05:05→17:22)
[2021-09-07] MEDS: *HR* Heparin 5,000 UNIT/ML VIAL SQ SCH ×3 (05:06→20:58)
[2021-09-07 05:29] LABS: Eosinophils # 0.4 K/mcL (0.0-0.6); Eosinophils % 5.2 %; Hematocrit 23.2 % (35.3-44.9); Hemoglobin 7.1 g/dL (11.5-15.4); Immature Granulocytes % 0.5 % (0-4); Lymphocytes # 0.7 K/mcL (0.6-4.6); Lymphocytes % 9.5 %; Mean Corpuscular HGB Conc 30.6 g/dL (31.6-35.5); Mean Corpuscular Volume 97.9 fL (83.0-100.0); Mean Platelet Volume 11.3 fL (9.4-12.4); Monocytes # 0.4 K/mcL (0.0-1.3); Monocytes % 5.4 %; Neutrophils # 6.1 K/mcL (1.6-8.9); Platelet Count 117 K/mcL (140-400); Red Blood Count 2.37 M/mcL (3.82-4.97); Red Cell Distribution Width 14.3 % (11.5-14.5); Segmented Neutrophils % 79.4 %; White Blood Count 7.7 K/mcL (4.3-11.1)
[2021-09-07 05:42] LABS: Calcium 7.9 mg/dL (8.6-10.3)
[2021-09-07] MEDS: Saliva Stimulant 44.3ml BOTTLE PO PRN ×2 (06:09→08:44)
[2021-09-07] MEDS: Insulin LISPRO 300 UNITS/3 ML VIAL SUBQ SCH ×3 (07:41→15:27)
[2021-09-07] MEDS: SODIUM ZIRCONIUM CYCLOSILICATE 5 GM POWD.PACK PO SCH (07:43)
[2021-09-07] MEDS: PrednisoLONE Acetate 1% Opth 5 ML BOTTLE RIGHT EYE SCH ×2 (08:43→20:58)
[2021-09-07] MEDS: Cyanocobalamin (B-12) 1,000 MCG TABLET PO SCH (08:44)
[2021-09-07] MEDS: amLODIPine 5 MG TABLET PO SCH (08:44)
[2021-09-07] MEDS: Gabapentin 300 MG CAPSULE PO SCH ×3 (08:44→20:58)
[2021-09-07] MEDS: Metoprolol XL (24 HR) Succ 25 MG TAB.ER.24H PO SCH (08:44)
[2021-09-07 15:10] LABS: % Iron Saturation 11 % (15-50); Iron 23 mcg/dL (50-170); Transferrin 145 mg/dL (203-362)
[2021-09-07] MEDS: Insulin DETEMIR 100 UNIT/ML X5UNITS SUBQ SCH (20:57)
[2021-09-07] MEDS: Acetaminophen 325 MG TABLET PO PRN (21:01)
[2021-09-08 01:34] LABS: Mean Corpuscular HGB Conc 30.4 g/dL (31.6-35.5); Mean Corpuscular Volume 98.7 fL (83.0-100.0); Mean Platelet Volume 11.2 fL (9.4-12.4); Platelet Count 137 K/mcL (140-400); Red Blood Count 2.33 M/mcL (3.82-4.97); Red Cell Distribution Width 14.2 % (11.5-14.5); White Blood Count 6.7 K/mcL (4.3-11.1)
[2021-09-08 01:53] LABS: Potassium 3.6 mEq/L (3.5-5.1)
[2021-09-08] MEDS: Cefepime HCl 2,000 MG in Water for inj. (sterile) 20 ML IVP SCH ×3 (05:31→18:26)
[2021-09-08] MEDS: *HR* Heparin 5,000 UNIT/ML VIAL SQ SCH ×3 (05:32→19:52)
[2021-09-08] MEDS: Insulin LISPRO 300 UNITS/3 ML VIAL SUBQ SCH ×3 (08:46→16:30)
[2021-09-08] MEDS: amLODIPine 5 MG TABLET PO SCH (08:57)
[2021-09-08] MEDS: Gabapentin 300 MG CAPSULE PO SCH ×3 (08:57→19:53)
[2021-09-08] MEDS: Cyanocobalamin (B-12) 1,000 MCG TABLET PO SCH (08:57)
[2021-09-08] MEDS: Metoprolol XL (24 HR) Succ 25 MG TAB.ER.24H PO SCH (08:57)
[2021-09-08] MEDS: PrednisoLONE Acetate 1% Opth 5 ML BOTTLE RIGHT EYE SCH ×2 (08:58→19:53)
[2021-09-08 10:33] LABS: Adenovirus Not Detected (Not Detect); Coronavirus 229E Not Detected (Not Detect); Coronavirus HKU1 Not Detected (Not Detect); Coronavirus NL63 Not Detected (Not Detect); Coronavirus OC43 Not Detected (Not Detect); Human Metapneumovirus Not Detected (Not Detect); Human Rhinovirus/Enterovirus Not Detected (Not Detect); Influenza A Subtype 2009 H1 Not Detected (Not Detect); SARS-CoV-2 Not Detected (Not Detect)
[2021-09-08 10:34] LABS: Bordetella Pertussis Not Detected (Not Detect); Chlamydophila pneumoniae Not Detected (Not Detect); Influenza B Not Detected (Not Detect); Mycoplasma pneumoniae Not Detected (Not Detect); Parainfluenza Virus 1 Not Detected (Not Detect); Parainfluenza Virus 2 Not Detected (Not Detect); Parainfluenza Virus 3 Not Detected (Not Detect); Parainfluenza Virus 4 Not Detected (Not Detect); Respiratory Syncytial Virus Not Detected (Not Detect)
[2021-09-08 14:46] LABS: Hematocrit 23.9 % (35.3-44.9); Hemoglobin 7.4 g/dL (11.5-15.4)
[2021-09-08] MEDS: Insulin DETEMIR 100 UNIT/ML X5UNITS SUBQ SCH (19:53)
[2021-09-09 01:44] LABS: Hematocrit 21.7 % (35.3-44.9); Hemoglobin 6.8 g/dL (11.5-15.4); Mean Corpuscular HGB Conc 31.3 g/dL (31.6-35.5); Mean Corpuscular Hemoglobin 30.8 pg (28.0-33.3); Mean Corpuscular Volume 98.2 fL (83.0-100.0); Mean Platelet Volume 11.3 fL (9.4-12.4); Platelet Count 146 K/mcL (140-400); Red Blood Count 2.21 M/mcL (3.82-4.97); Red Cell Distribution Width 14.2 % (11.5-14.5); White Blood Count 7.6 K/mcL (4.3-11.1)
[2021-09-09 02:03] LABS: Calcium 8.2 mg/dL (8.6-10.3); Potassium 3.4 mEq/L (3.5-5.1)
[2021-09-09] MEDS: Cefepime HCl 2,000 MG in Water for inj. (sterile) 20 ML IVP SCH ×2 (05:15→19:04)
[2021-09-09] MEDS: *HR* Heparin 5,000 UNIT/ML VIAL SQ SCH ×3 (05:15→19:45)
[2021-09-09] MEDS: Insulin LISPRO 300 UNITS/3 ML VIAL SUBQ SCH ×3 (07:09→17:00)
[2021-09-09] MEDS: Cyanocobalamin (B-12) 1,000 MCG TABLET PO SCH (08:51)
[2021-09-09] MEDS: amLODIPine 5 MG TABLET PO SCH (08:51)
[2021-09-09] MEDS: Metoprolol XL (24 HR) Succ 25 MG TAB.ER.24H PO SCH (08:51)
[2021-09-09] MEDS: Gabapentin 300 MG CAPSULE PO SCH ×3 (08:51→19:44)
[2021-09-09] MEDS: PrednisoLONE Acetate 1% Opth 5 ML BOTTLE RIGHT EYE SCH ×2 (09:04→19:44)
[2021-09-09 09:30] LABS: Hematocrit 22.5 % (35.3-44.9)
[2021-09-09] MEDS: Doxycycline 100 MG CAPSULE PO SCH ×2 (11:21→19:44)
[2021-09-09] MEDS: Insulin DETEMIR 100 UNIT/ML X5UNITS SUBQ SCH (19:51)
[2021-09-10] MEDS: Cefepime HCl 2,000 MG in Water for inj. (sterile) 20 ML IVP SCH (06:05)
[2021-09-10] MEDS: *HR* Heparin 5,000 UNIT/ML VIAL SQ SCH ×2 (06:05→16:13)
[2021-09-10] MEDS: Insulin LISPRO 300 UNITS/3 ML VIAL SUBQ SCH ×3 (07:35→16:13)
[2021-09-10] MEDS: Doxycycline 100 MG CAPSULE PO SCH (07:43)
[2021-09-10] MEDS: Metoprolol XL (24 HR) Succ 25 MG TAB.ER.24H PO SCH (07:43)
[2021-09-10] MEDS: Cyanocobalamin (B-12) 1,000 MCG TABLET PO SCH (07:43)
[2021-09-10] MEDS: amLODIPine 5 MG TABLET PO SCH (07:43)
[2021-09-10] MEDS: Gabapentin 300 MG CAPSULE PO SCH ×2 (07:43→16:12)
[2021-09-10] MEDS: PrednisoLONE Acetate 1% Opth 5 ML BOTTLE RIGHT EYE SCH (07:45)
[2021-09-10 08:48] LABS: Calcium 8.8 mg/dL (8.6-10.3); Potassium 4.3 mEq/L (3.5-5.1)
[2021-09-10 11:50] LABS: Basophils % 0.1 %; Eosinophils # 0.4 K/mcL (0.0-0.6); Eosinophils % 5.3 %; Hematocrit 23.1 % (35.3-44.9); Hemoglobin 7.2 g/dL (11.5-15.4); Lymphocytes # 0.9 K/mcL (0.6-4.6); Lymphocytes % 13.4 %; Mean Corpuscular HGB Conc 31.2 g/dL (31.6-35.5); Mean Corpuscular Hemoglobin 31.2 pg (28.0-33.3); Mean Platelet Volume 11.6 fL (9.4-12.4); Monocytes # 0.5 K/mcL (0.0-1.3); Monocytes % 7.2 %; Platelet Count 143 K/mcL (140-400); Red Blood Count 2.31 M/mcL (3.82-4.97); Red Cell Distribution Width 14.2 % (11.5-14.5)
[2021-09-10 16:07] VITALS: BP 123/68; PULSE 71; TEMP 98.1; O2SAT 92
== END 2021-09-10 18:45 | disposition other institution (70) | DRG 682 ==
LOC: EMEROOARM 16:48 → 2ANU 16:48 → SUATTDRO 19:26 → 2ANU 20:30 → SUATTDRO 09-03 15:29
PROVIDERS: ADMIT Student in an Organized Health Care Education/Training Program; ATTEND Internal Medicine

== ENCOUNTER 2021-10-15 16:27 | Inpatient (IN) ==
[2021-10-15 17:25] LABS: INR 1.2; Prothrombin Time 13.3 Seconds (9.4-12.1)
[2021-10-15 17:27] LABS: Basophils % 0.4 %; Eosinophils # 0.4 K/mcL (0.0-0.6); Hematocrit 23.1 % (35.3-44.9); Hemoglobin 6.9 g/dL (11.5-15.4); Immature Granulocytes % 0.3 % (0-4); Lymphocytes # 1.2 K/mcL (0.6-4.6); Lymphocytes % 12.8 %; Mean Corpuscular HGB Conc 29.9 g/dL (31.6-35.5); Mean Corpuscular Hemoglobin 30.5 pg (28.0-33.3); Mean Corpuscular Volume 102.2 fL (83.0-100.0); Mean Platelet Volume 10.6 fL (9.4-12.4); Monocytes # 0.6 K/mcL (0.0-1.3); Monocytes % 6.3 %; Platelet Count 168 K/mcL (140-400); Red Blood Count 2.26 M/mcL (3.82-4.97); Red Cell Distribution Width 15.2 % (11.5-14.5); Segmented Neutrophils % 76.2 %; White Blood Count 9.2 K/mcL (4.3-11.1)
[2021-10-15 17:28] LABS: Activated Partial Thrombo Time 31.3 Seconds (26.0-36.0)
[2021-10-15 17:37] LABS: Alanine Aminotransferase 11 Units/L (7-52); Albumin 3.8 g/dL (3.5-5.7); Albumin/Globulin Ratio 1.3 (1.1-2.2); Alkaline Phosphatase 65 Units/L (34-104); Aspartate Amino Transferase 16 Units/L (13-39); BUN/Creatinine Ratio 22 (6-26); Bilirubin,Total 0.9 mg/dL (0.3-1.0); Blood Urea Nitrogen 36 mg/dL (8-23); Calcium 9.8 mg/dL (8.6-10.3); Carbon Dioxide 23 mEq/L (23-29); Chloride 112 mEq/L (98-107); Glucose 68 mg/dL (70-105); Osmolality,Calculated 297 (280-300); Sodium 140 mEq/L (136-145); Total Protein 6.8 g/dL (6.4-8.9); Troponin I < 0.03 ng/mL (< 0.04); eGFR For African Americans 39 (> 60); eGFR For Non-African Americans 32 (> 60)
[2021-10-15 18:14] LABS: Influenza A PCR Negative (Negative); Influenza B PCR Negative (Negative); Resp. Syncytial Virus PCR Negative (Negative)
[2021-10-15 18:22] LABS: SARS-CoV-2 by PCR (In House) Negative (Negative)
[2021-10-15] MEDS ORDERED: Furosemide 40 MG/4 ML VIAL IVP ONE (18:40)
[2021-10-15] MEDS ORDERED: Naloxone 0.4 MG/ML INJ IVP PRN (23:06)
[2021-10-15] MEDS ORDERED: Ondansetron 4 MG/2 ML VIAL IVP PRN (23:17)
[2021-10-16] MEDS ORDERED: *HR* Dextrose 50 % in Water (Syg) 50 ML SYRINGE IVP PRN (00:28)
[2021-10-16] MEDS ORDERED: Dextrose Gel 15 GM/37.5 ML TUBE PO PRN ×2 (00:28)
[2021-10-16] MEDS ORDERED: D5% in Water 1,000 ML IVC PRN (00:28)
[2021-10-16] MEDS ORDERED: Perflutren Lipid Microsphere 1.3 ML in 0.9 % Sodium Chloride 8.7 ML IVP PRN (01:49)
[2021-10-16] MEDS ORDERED: *HR* Dextrose 50 % in Water (Vial) 50 ML VIAL IVP ONE (02:10)
[2021-10-16] MEDS: Saline Nasal Spray 44 ML BOTTLE NS PRN (02:23)
[2021-10-16 04:49] LABS: Hematocrit 21.1 % (35.3-44.9); Hemoglobin 6.5 g/dL (11.5-15.4); Immature Reticulocyte % 20.1 % (11.0-38.0); Mean Corpuscular HGB Conc 30.8 g/dL (31.6-35.5); Mean Corpuscular Hemoglobin 31.3 pg (28.0-33.3); Mean Corpuscular Volume 101.4 fL (83.0-100.0); Mean Platelet Volume 10.5 fL (9.4-12.4); Platelet Count 165 K/mcL (140-400); Red Blood Count 2.08 M/mcL (3.82-4.97); Red Cell Distribution Width 15.4 % (11.5-14.5); Retculocyte # 0.06 M/mcL (0.05-0.10); Reticulocyte % 2.6 % (1.6-2.8); White Blood Count 9.9 K/mcL (4.3-11.1)
[2021-10-16 05:02] LABS: Calcium 9.5 mg/dL (8.6-10.3); Potassium 4.5 mEq/L (3.5-5.1)
[2021-10-16 05:17] LABS: Thyroid Stimulating Hormone 4.496 mcIU/mL (0.340-5.600)
[2021-10-16 05:31] LABS: Folate 7.9 ng/mL (3.0-16.0)
[2021-10-16] MEDS: Insulin LISPRO 300 UNITS/3 ML VIAL SUBQ SCH ×5 (06:00→20:54)
[2021-10-16] MEDS ORDERED: 0.9 % Sodium Chloride 250 ML ONE (06:28)
[2021-10-16] MEDS ORDERED: Furosemide 20 MG/2 ML VIAL IVP ONE (08:57)
[2021-10-16] MEDS ORDERED: Iron Sucrose Complex 400 MG in 0.9 % Sodium Chloride 250 ML IVPB ONE (14:21)
[2021-10-16 15:34] LABS: Hematocrit 25.5 % (35.3-44.9)
[2021-10-16 17:10] LABS: Appearance of Pleural Fl Clear (Clear)
[2021-10-16 18:13] LABS: Amylase,Pleural Fluid < 10 Units/L (No Ref Range); Glucose,Pleural Fluid 85 mg/dL (No Ref Range); LDH,Pleural Fluid 50 Units/L (No Ref Range); Total Protein,Pleural Fluid < 2.0 g/dL
[2021-10-16] MEDS: Gabapentin 300 MG CAPSULE PO SCH ×2 (18:59→21:01)
[2021-10-16] MEDS: Furosemide 20 MG/2 ML VIAL IVP SCH (21:02)
[2021-10-17] MEDS: Insulin LISPRO 300 UNITS/3 ML VIAL SUBQ SCH ×6 (01:16→21:38)
[2021-10-17 06:38] LABS: Basophils % 0.4 %; Eosinophils # 0.3 K/mcL (0.0-0.6); Eosinophils % 3.9 %; Hematocrit 23.8 % (35.3-44.9); Hemoglobin 7.3 g/dL (11.5-15.4); Immature Granulocytes % 0.4 % (0-4); Lymphocytes # 1.2 K/mcL (0.6-4.6); Lymphocytes % 15.8 %; Mean Corpuscular HGB Conc 30.7 g/dL (31.6-35.5); Mean Corpuscular Hemoglobin 30.2 pg (28.0-33.3); Mean Corpuscular Volume 98.3 fL (83.0-100.0); Mean Platelet Volume 10.8 fL (9.4-12.4); Monocytes # 0.7 K/mcL (0.0-1.3); Monocytes % 8.8 %; Neutrophils # 5.5 K/mcL (1.6-8.9); Platelet Count 146 K/mcL (140-400); Red Blood Count 2.42 M/mcL (3.82-4.97); Red Cell Distribution Width 16.7 % (11.5-14.5); Segmented Neutrophils % 70.7 %; White Blood Count 7.7 K/mcL (4.3-11.1)
[2021-10-17 06:58] LABS: Magnesium 1.8 mg/dL (1.6-2.6); Potassium 4.4 mEq/L (3.5-5.1)
[2021-10-17] MEDS ORDERED: Iron Sucrose Complex 400 MG in 0.9 % Sodium Chloride 250 ML IVPB ONE (07:43)
[2021-10-17] MEDS: Furosemide 20 MG/2 ML VIAL IVP SCH ×3 (08:26→21:37)
[2021-10-17] MEDS: Metoprolol XL (24 HR) Succ 25 MG TAB.ER.24H PO SCH (08:26)
[2021-10-17] MEDS: Gabapentin 300 MG CAPSULE PO SCH ×3 (08:26→21:37)
[2021-10-17] MEDS: allopurinoL 100 MG TABLET PO SCH (08:26)
[2021-10-17] MEDS: amLODIPine 5 MG TABLET PO SCH (08:26)
[2021-10-17] MEDS: Cyanocobalamin (B-12) 1,000 MCG TABLET PO SCH (08:26)
[2021-10-17] MEDS: PrednisoLONE Acetate 1% Opth 5 ML BOTTLE RIGHT EYE SCH ×2 (10:47→21:39)
[2021-10-17 12:01] LABS: Hematocrit 25.7 % (35.3-44.9); Hemoglobin 7.9 g/dL (11.5-15.4)
[2021-10-18] MEDS: Insulin LISPRO 300 UNITS/3 ML VIAL SUBQ SCH ×6 (01:14→21:29)
[2021-10-18 07:29] LABS: Basophils % 0.2 %; Eosinophils # 0.4 K/mcL (0.0-0.6); Eosinophils % 4.5 %; Hematocrit 25.6 % (35.3-44.9); Hemoglobin 7.7 g/dL (11.5-15.4); Immature Granulocytes % 0.4 % (0-4); Lymphocytes # 1.2 K/mcL (0.6-4.6); Lymphocytes % 14.6 %; Mean Corpuscular HGB Conc 30.1 g/dL (31.6-35.5); Mean Corpuscular Hemoglobin 29.6 pg (28.0-33.3); Mean Corpuscular Volume 98.5 fL (83.0-100.0); Mean Platelet Volume 10.7 fL (9.4-12.4); Monocytes # 0.8 K/mcL (0.0-1.3); Platelet Count 163 K/mcL (140-400); Red Cell Distribution Width 16.7 % (11.5-14.5); Segmented Neutrophils % 71.3 %; White Blood Count 8.4 K/mcL (4.3-11.1)
[2021-10-18 07:47] LABS: Calcium 9.4 mg/dL (8.6-10.3); Potassium 4.3 mEq/L (3.5-5.1)
[2021-10-18] MEDS: allopurinoL 100 MG TABLET PO SCH (08:09)
[2021-10-18] MEDS: Metoprolol XL (24 HR) Succ 25 MG TAB.ER.24H PO SCH (08:09)
[2021-10-18] MEDS: Gabapentin 300 MG CAPSULE PO SCH ×3 (08:10→21:30)
[2021-10-18] MEDS: amLODIPine 5 MG TABLET PO SCH (08:10)
[2021-10-18] MEDS: Cyanocobalamin (B-12) 1,000 MCG TABLET PO SCH (08:10)
[2021-10-18] MEDS: Furosemide 20 MG/2 ML VIAL IVP SCH ×3 (08:10→21:30)
[2021-10-18] MEDS: Saline Nasal Spray 44 ML BOTTLE NS PRN (08:12)
[2021-10-18] MEDS: PrednisoLONE Acetate 1% Opth 5 ML BOTTLE RIGHT EYE SCH ×2 (08:13→21:31)
[2021-10-18] MEDS ORDERED: Metoprolol XL (24 HR) Succ 25 MG TAB.ER.24H PO ONE (10:00)
[2021-10-19] MEDS: Insulin LISPRO 300 UNITS/3 ML VIAL SUBQ SCH ×5 (08:19→20:45)
[2021-10-19] MEDS: Gabapentin 300 MG CAPSULE PO SCH ×3 (08:45→20:52)
[2021-10-19] MEDS: allopurinoL 100 MG TABLET PO SCH (08:45)
[2021-10-19] MEDS: Metoprolol XL (24 HR) Succ 25 MG TAB.ER.24H PO SCH (08:45)
[2021-10-19] MEDS: Furosemide 20 MG/2 ML VIAL IVP SCH (08:45)
[2021-10-19] MEDS: PrednisoLONE Acetate 1% Opth 5 ML BOTTLE RIGHT EYE SCH ×2 (08:46→20:52)
[2021-10-19] MEDS: amLODIPine 5 MG TABLET PO SCH (08:46)
[2021-10-19] MEDS: Cyanocobalamin (B-12) 1,000 MCG TABLET PO SCH (08:46)
[2021-10-19 09:43] LABS: Basophils % 0.4 %; Eosinophils # 0.5 K/mcL (0.0-0.6); Eosinophils % 4.9 %; Hematocrit 26.1 % (35.3-44.9); Hemoglobin 8.1 g/dL (11.5-15.4); Immature Granulocytes % 0.3 % (0-4); Lymphocytes # 1.3 K/mcL (0.6-4.6); Lymphocytes % 13.7 %; Mean Corpuscular Hemoglobin 30.1 pg (28.0-33.3); Mean Platelet Volume 10.9 fL (9.4-12.4); Monocytes # 0.8 K/mcL (0.0-1.3); Monocytes % 8.6 %; Neutrophils # 6.6 K/mcL (1.6-8.9); Platelet Count 175 K/mcL (140-400); Red Blood Count 2.69 M/mcL (3.82-4.97); Red Cell Distribution Width 16.1 % (11.5-14.5); Segmented Neutrophils % 72.1 %; White Blood Count 9.2 K/mcL (4.3-11.1)
[2021-10-19 10:00] LABS: Calcium 9.3 mg/dL (8.6-10.3); Potassium 3.8 mEq/L (3.5-5.1)
[2021-10-20 02:47] LABS: Hematocrit 23.4 % (35.3-44.9); Hemoglobin 7.5 g/dL (11.5-15.4)
[2021-10-20 03:02] LABS: Calcium 9.1 mg/dL (8.6-10.3); Potassium 3.9 mEq/L (3.5-5.1)
[2021-10-20] MEDS: Insulin LISPRO 300 UNITS/3 ML VIAL SUBQ SCH ×4 (08:36→21:10)
[2021-10-20] MEDS: Gabapentin 300 MG CAPSULE PO SCH ×3 (08:38→21:10)
[2021-10-20] MEDS: Furosemide 40 MG TABLET PO SCH (08:38)
[2021-10-20] MEDS: Metoprolol XL (24 HR) Succ 25 MG TAB.ER.24H PO SCH (08:39)
[2021-10-20] MEDS: Cyanocobalamin (B-12) 1,000 MCG TABLET PO SCH (08:39)
[2021-10-20] MEDS: allopurinoL 100 MG TABLET PO SCH (08:40)
[2021-10-20] MEDS: amLODIPine 5 MG TABLET PO SCH (08:41)
[2021-10-20] MEDS: PrednisoLONE Acetate 1% Opth 5 ML BOTTLE RIGHT EYE SCH ×2 (08:42→21:10)
[2021-10-20 10:11] LABS: Hematocrit 28.6 % (35.3-44.9)
[2021-10-21 03:05] LABS: Hematocrit 24.4 % (35.3-44.9); Hemoglobin 7.6 g/dL (11.5-15.4)
[2021-10-21 03:20] LABS: Potassium 3.8 mEq/L (3.5-5.1)
[2021-10-21] MEDS: Insulin LISPRO 300 UNITS/3 ML VIAL SUBQ SCH ×4 (07:34→21:10)
[2021-10-21] MEDS: Cyanocobalamin (B-12) 1,000 MCG TABLET PO SCH (08:09)
[2021-10-21] MEDS: amLODIPine 5 MG TABLET PO SCH (08:09)
[2021-10-21] MEDS: PrednisoLONE Acetate 1% Opth 5 ML BOTTLE RIGHT EYE SCH ×2 (08:10→21:10)
[2021-10-21] MEDS: Gabapentin 300 MG CAPSULE PO SCH ×3 (08:10→21:05)
[2021-10-21] MEDS: Furosemide 40 MG TABLET PO SCH (08:10)
[2021-10-21] MEDS: Metoprolol XL (24 HR) Succ 25 MG TAB.ER.24H PO SCH (08:10)
[2021-10-21] MEDS ORDERED: Furosemide 20 MG/2 ML VIAL IVP ONE (13:39)
[2021-10-21] MEDS ORDERED: 0.9 % Sodium Chloride 250 ML IVC SCH (13:45)
[2021-10-21 16:28] LABS: Hematocrit 26.6 % (35.3-44.9); Hemoglobin 8.3 g/dL (11.5-15.4); Mean Corpuscular HGB Conc 31.2 g/dL (31.6-35.5); Mean Corpuscular Hemoglobin 30.3 pg (28.0-33.3); Mean Corpuscular Volume 97.1 fL (83.0-100.0); Mean Platelet Volume 10.7 fL (9.4-12.4); Platelet Count 177 K/mcL (140-400); Red Blood Count 2.74 M/mcL (3.82-4.97); Red Cell Distribution Width 16.3 % (11.5-14.5); White Blood Count 8.6 K/mcL (4.3-11.1)
[2021-10-22 06:08] LABS: Basophils % 0.4 %; Eosinophils # 0.4 K/mcL (0.0-0.6); Eosinophils % 5.1 %; Hematocrit 24.8 % (35.3-44.9); Hemoglobin 7.8 g/dL (11.5-15.4); Immature Granulocytes % 0.3 % (0-4); Lymphocytes # 1.2 K/mcL (0.6-4.6); Lymphocytes % 15.5 %; Mean Corpuscular HGB Conc 31.5 g/dL (31.6-35.5); Mean Corpuscular Hemoglobin 30.2 pg (28.0-33.3); Mean Corpuscular Volume 96.1 fL (83.0-100.0); Mean Platelet Volume 10.9 fL (9.4-12.4); Monocytes # 0.7 K/mcL (0.0-1.3); Monocytes % 9.4 %; Neutrophils # 5.5 K/mcL (1.6-8.9); Platelet Count 167 K/mcL (140-400); Red Blood Count 2.58 M/mcL (3.82-4.97); Red Cell Distribution Width 16.1 % (11.5-14.5); Segmented Neutrophils % 69.3 %; White Blood Count 7.9 K/mcL (4.3-11.1)
[2021-10-22 06:10] LABS: Calcium 9.1 mg/dL (8.6-10.3); Potassium 3.7 mEq/L (3.5-5.1)
[2021-10-22] MEDS: Furosemide 40 MG TABLET PO SCH (07:50)
[2021-10-22] MEDS: Insulin LISPRO 300 UNITS/3 ML VIAL SUBQ SCH ×2 (07:50→12:17)
[2021-10-22] MEDS: Metoprolol XL (24 HR) Succ 25 MG TAB.ER.24H PO SCH (07:51)
[2021-10-22] MEDS: Gabapentin 300 MG CAPSULE PO SCH ×2 (07:51→15:03)
[2021-10-22] MEDS: Cyanocobalamin (B-12) 1,000 MCG TABLET PO SCH (07:51)
[2021-10-22] MEDS: amLODIPine 5 MG TABLET PO SCH (07:51)
[2021-10-22] MEDS: PrednisoLONE Acetate 1% Opth 5 ML BOTTLE RIGHT EYE SCH (07:54)
[2021-10-22 14:48] VITALS: BP 146/70; PULSE 55; TEMP 97.9; O2SAT 91
== END 2021-10-22 19:29 | DRG 811 ==
LOC: 3ANU 16:27 → EMEROOARM 16:27 → SUATTDRO 23:04 → 3ANU 23:24 → SUATTDRO 10-16 12:06
PROVIDERS: ADMIT Student in an Organized Health Care Education/Training Program; ATTEND Family Medicine